=== PATIENT | female | born 1955 | race Caucasian/White ===

== ENCOUNTER → 2019-06-29 14:22 | Outpatient (CLI) | payer MEDICARE, SELFPAY ==
[2018-07-21 10:01] VITALS: BMI 32.5
--- NOTE | 2019-06-29 14:24 | BI_ITS ---
MAMMOGRAPHY - UNILATERAL SCREENING: LEFT BREAST REASON FOR EXAM: Female, 64 years old. Routine annual screening examination (unilateral). PERTINENT HISTORY: Personal history of breast cancer. Prior right mastectomy and left lumpectomy. Mother with breast cancer. TECHNIQUE: Digital unilateral breast charlotte (3D mammographic acquisition) in the CC and MLO projections. 2-D mediolateral oblique (MLO) and craniocaudad (CC) views of both breasts were obtained. CAD: Full Field Digital Mammography with Computer Added Detection was performed. COMPARISON: Comparison is made with prior study dated May 05, 2017. FINDINGS: Breast Composition: There are scattered areas of fibroglandular density. There are no dominant masses or suspicious calcifications. Stable focal architectural distortion with macrocalcification in the deep slightly inferior central portion of the left breast. Surgical clips are seen in the left axillary region. No other significant abnormalities are identified. There has been no significant change since the prior study. BI/SCREEN MAMM (CAD) W/CHARLOTTE UNI L IMPRESSION: Stable unilateral screening mammogram. Yearly follow-up mammogram recommended. (A) ASSESSMENT CATEGORY: BIRADS Category 2: Benign. A letter regarding these results will be sent to the patient by the facility within 30 days. Approximately 10% of breast cancers are not detected by mammography. A normal mammogram should not delay biopsy of a clinically suspicious abnormality. [id number] Electronically Signed: Skyler Bauer, at 15:25 EDT , Service support ,
== END ==
PROVIDERS: PCP Family Medicine; Referring Provider Nurse Practitioner Women's Health; Visit Provider Nurse Practitioner Women's Health
DX: Z12.31 Encounter for screening mammogram for malignant neoplasm of breast (principal); Z90.11 Acquired absence of right breast and nipple; Z85.3 Personal history of malignant neoplasm of breast
CPT/HCPCS: 77063; 77067

== ENCOUNTER → 2020-12-24 12:43 | Outpatient (CLI) | payer MEDICARE, SELFPAY ==
--- NOTE | 2020-12-24 12:47 | BI_ITS ---
MAMMOGRAPHY - UNILATERAL SCREENING: LEFT BREAST REASON FOR EXAM: Female, 65 years old. Routine annual screening examination (unilateral). PERTINENT HISTORY: Personal history of breast cancer. Prior right mastectomy and left lumpectomy. Mother with breast cancer. TECHNIQUE: Digital unilateral breast charlotte (3D mammographic acquisition) in the CC and MLO projections. 2-D mediolateral oblique (MLO) and craniocaudad (CC) views of both breasts were obtained. CAD: Full Field Digital Mammography with Computer Added Detection was performed. COMPARISON: Comparison is made with prior study 06/29/2019 and 05/05/2017. FINDINGS: Breast Composition: There are scattered areas of fibroglandular density. There are no dominant masses or suspicious calcifications. Stable focal architectural distortion with calcification in the deep slightly inferior central portion of the left breast. Surgical clips are also seen in the left axillary region. No other significant abnormalities are identified. There has been no significant change since the prior study. BI/SCREEN MAMM (CAD) W/CHARLOTTE UNI L IMPRESSION: Stable unilateral screening mammogram. Yearly follow-up mammogram recommended. (A) ASSESSMENT CATEGORY: BIRADS Category 2: Benign. A letter regarding these results will be sent to the patient by the facility within 30 days. Approximately 10% of breast cancers are not detected by mammography. A normal mammogram should not delay biopsy of a clinically suspicious abnormality. [id number] Electronically Signed: Skyler Bauer MD at 13:45 EDT , Service support ,
== END ==
PROVIDERS: PCP Family Medicine; Referring Provider Nurse Practitioner Women's Health; Visit Provider Nurse Practitioner Women's Health
DX: Z12.31 Encounter for screening mammogram for malignant neoplasm of breast (principal)
CPT/HCPCS: 77063; 77067

== ENCOUNTER → 2022-02-11 | Outpatient (CLI) | payer MEDICARE, SELFPAY ==
--- NOTE | 2022-02-11 12:07 | BI_ITS ---
MAMMOGRAPHY - UNILATERAL SCREENING: LEFT BREAST REASON FOR EXAM: Female, 66 years old. Routine annual screening examination (unilateral). PERTINENT HISTORY: Personal history of breast cancer. Prior right mastectomy. Prior left lumpectomy. TECHNIQUE: Digital unilateral breast charlotte (3D mammographic acquisition) in the CC and MLO projections. 2-D mediolateral oblique (MLO) and craniocaudad (CC) views of both breasts were obtained. CAD: Full Field Digital Mammography with Computer Added Detection was performed. COMPARISON: Comparison is made with prior study dated 12/24/2020 and 06/29/2019 FINDINGS: Breast Composition: There are scattered areas of fibroglandular density. There are no dominant masses or suspicious calcifications. The patient is status post lumpectomy involving the deep inferior central aspect of the left breast with resultant architectural distortion and postoperative calcification. Surgical clips are also seen in the left axillary region. No other significant abnormalities are identified. There has been no significant change since the prior study. BI/SCREEN MAMM (CAD) W/CHARLOTTE UNI L IMPRESSION: Stable unilateral screening mammogram. Yearly follow-up mammogram recommended. (A) ASSESSMENT CATEGORY: BIRADS Category 2: Benign. A letter regarding these results will be sent to the patient by the facility within 30 days. Approximately 10% of breast cancers are not detected by mammography. A normal mammogram should not delay biopsy of a clinically suspicious abnormality. [id number] Electronically Signed: Skyler Bauer MD at 12:58 EDT ,
== END | disposition home or self-care (01) ==
LOC: OPBI 12:06
PROVIDERS: PCP Family Medicine; Referring Provider Nurse Practitioner Women's Health; Visit Provider Nurse Practitioner Women's Health
DX: Z12.31 Encounter for screening mammogram for malignant neoplasm of breast (principal); Z90.11 Acquired absence of right breast and nipple
CPT/HCPCS: 77063; 77067

== ENCOUNTER → 2023-02-16 | Outpatient (CLI) | payer MEDICARE, SELFPAY ==
--- NOTE | 2023-02-16 08:04 | BI_ITS ---
MAMMOGRAPHY - UNILATERAL SCREENING: LEFT BREAST REASON FOR EXAM: Female, 67 years old. Routine annual screening examination (unilateral). PERTINENT HISTORY: Personal history of breast cancer. Prior right mastectomy. Prior left lumpectomy with chemotherapy and radiation therapy. Mother with breast cancer. TECHNIQUE: Digital unilateral breast charlotte (3D mammographic acquisition) in the CC and MLO projections. 2-D mediolateral oblique (MLO) and craniocaudad (CC) views of both breasts were obtained. CAD: Full Field Digital Mammography with Computer Added Detection was performed. COMPARISON: Comparison is made with prior study dated February 11, 2022 and December 24, 2020. FINDINGS: Breast Composition: There are scattered areas of fibroglandular density. There are no dominant masses or suspicious calcifications. Once again, the patient is status post lumpectomy in the deep inferior central portion of the left breast with resultant postoperative scarring and dystrophic calcification at the operative site. Stable appearance of the left axillary surgical clips. No other significant abnormalities are identified. There has been no significant change since the prior study. BI/SCREEN MAMM (CAD) W/CHARLOTTE UNI L IMPRESSION: Stable unilateral screening mammogram. Yearly follow-up mammogram recommended. (A) ASSESSMENT CATEGORY: BIRADS Category 2: Benign. A letter regarding these results will be sent to the patient by the facility within 30 days. Approximately 10% of breast cancers are not detected by mammography. A normal mammogram should not delay biopsy of a clinically suspicious abnormality. [id number] Electronically Signed: Skyler Bauer MD at 9:01 EDT ,
== END | disposition home or self-care (01) ==
LOC: OPBI 08:03
PROVIDERS: PCP Family Medicine; Referring Provider Nurse Practitioner Women's Health; Visit Provider Nurse Practitioner Women's Health
DX: Z12.31 Encounter for screening mammogram for malignant neoplasm of breast (principal); Z85.3 Personal history of malignant neoplasm of breast; Z80.3 Family history of malignant neoplasm of breast
CPT/HCPCS: 77063; 77067

== ENCOUNTER → 2023-03-24 | Outpatient (CLI) | payer MEDICARE, SELFPAY ==
--- NOTE | 2023-03-24 12:54 | US_ITS ---
STUDY: SUPERFICIAL ULTRASOUND - PRIOR MASTECTOMY. CHEST WALL MASS. REASON FOR EXAM: Female, 68 years old. MASS/RT BREAST TECHNIQUE: A superficial ultrasound was performed with real-time and static helms-scale imaging. COMPARISON: None. FINDINGS: The palpable abnormality corresponds to a 2.5 cm x 1.5 cm x 1.2 cm irregular hypoechoic mass. Peripheral vascularity is seen. Biopsy recommended. US/Chest IMPRESSION: The palpable abnormality corresponds to a 2.2 - by 1.5 cm x 1.2 cm irregular hypoechoic mass. Peripheral vascularity is seen. Biopsy recommended. Electronically Signed: Skyler Bauer MD at 15:10 EST ,
== END | disposition home or self-care (01) ==
LOC: OPUS 12:45 → US 12:48
PROVIDERS: Referring Provider Nurse Practitioner Women's Health; Visit Provider Nurse Practitioner Women's Health
DX: R22.2 Localized swelling, mass and lump, trunk (principal); Z90.10 Acquired absence of unspecified breast and nipple
CPT/HCPCS: 76604

== ENCOUNTER → 2023-04-16 | Outpatient (CLI) | payer MEDICARE, SELFPAY ==
--- NOTE | 2023-04-16 | IMM_PTH ---
PATHOLOGY RESULTS PATIENT: RUDDY HILLIARD LOC: [facility] U#:[id number] AGE/SX: 68/F ROOM: RE04/16/[address]: Dr. Jose Hernandez MD : 1955 BED: DIS: 04/16/2023 SPEC #: [id number] RECD: 04/21/23 14:43 STATUS: SUKH REQ #: [id number] SHERIE: 04/16/23 00:[address]: Jose Hernandez DEPT: IMMUNOHISTOCHEMISTRY RECD BY: Carmen Araiza ENTERED: 04/21/23 14:45 SP TYPE: IMMUNO OTHR DR: No Primary Care Phys Tissues: Chest wall, NOS Procedures: CALPONIN-1 (add) CK5-6 (add) CK8 (add) E-CAD (add) HER2 ROMA (add) KI-67 (add) MAMM (add) P53 (add) KY (add) Pankeratin (add) GATA3 (add) P40 (add) MOC-31 (add) ER (initial) PHYSICIAN & [place] [id number] SPECIMEN INFORMATION: Tissue Source: Right chest wall Clinical Info: Right chest wall mass Specimen Number: [id number] CPT code: 71174, 31380 x16 METHODOLOGY: Deparaffinized sections of prefer/formalin-fixed tissue or PAP/DQ stained slides are incubated with monoclonal/polyclonal antibodies/oligonucleotide probes. Localization is made via biotin free immunoperoxidase method. Appropriate controls are performed and reacted as expected. Results on target cell population are indicated in the following table: RESULTS: ANTIBODY / CLONE RESULT ER (6F11) positive, >95% KY (1E2) negative, 0% Her-2neu (CB11) negative, 0 P53 (DO-7) negative, null pattern Ki-67 (30-9) positive, 5% CK8 (04grwvG47) positive CK5-6 (D5 & 1684) negative Calponin-1 (QF256G) negative P40 (BC28) negative E-Cad (ECH-6) negative MOC-31 (4561) positive, dim Mammaglobin (31A5) positive GATA3 (L50-823) positive AE1-3 (AE1/AE3/PCK26) positive These tests were developed and their performance characteristics determined by [facility]. They may not have been cleared or approved by the U.S. Food and Drug Administration. The FDA has determined that such clearance or approval is not necessary. The above immunohistochemical/dualISH markers are ordered and reviewed by the Pathologist. INTERPRETATION: Right chest wall, biopsy: Infiltrating lobular carcinoma of breast origin. AM:shelli 04/22/2023
--- NOTE | 2023-04-16 | MASS_PTH ---
PATHOLOGY RESULTS PATIENT: RUDDY HILLIARD LOC: [facility] U#:[id number] AGE/SX: 68/F ROOM: RE04/16/[address]: Dr. Jose Hernandez MD : 1955 BED: DIS: 04/16/2023 SPEC #: [id number] RECD: 04/20/23 07:48 STATUS: SUKH MARTINEZ #: [id number] SHERIE: 04/16/23 00:[address]: Jose Hernandez DEPT: SURGICAL PATHOLOGY RECD BY: Barbi Mullins ENTERED: 04/20/23 07:50 SP TYPE: Mass OTHR DR: No Primary Care Phys Tissues: Chest wall, NOS Procedures: Surgery Specimen Level IV HEADER OPERATION: Right chest wall biopsy PRE-OP DIAGNOSIS: Right chest wall mass TISSUE SUBMITTED: Right chest wall tissue MICROSCOPIC DIAGNOSIS Right chest wall, biopsy: Infiltrating lobular carcinoma of breast origin. See comment. AM:shelli 04/21/2023 COMMENT Immunohistochemistry ([id number]) supports the above diagnosis. Case has been reviewed in consultation with Dr. Tay who concurs with the above diagnosis. IDC:SJ MICROSCOPIC DESCRIPTION Slides are reviewed. GROSS DESCRIPTION Received in fixative is one container labeled with the patient's name and designated right chest wall tissue. The specimen consists of two elongated pieces of garber soft tissue measuring in aggregate 0.8 x 0.2 x 0.1 cm. The specimen is totally submitted in one cassette. / SJ:shelli 04/20/2023 TC:0 CPT: 49362
--- OUTSIDE RECORDS SUMMARY | 2023-04-16 20:36 | XMS RPT_ITS | CCD ---
Author Name Unknown Address [address] [place] [address] Organization [facility] Results Test Name Value Interpretation Reference Range Facil ity Summary Purpose Family History No Family History Records Found Advance Directives No Advanced Directives Records Found Additional Source Comments INFORMATION SOURCE (unrecogn ized section and content) FOR RECORDS PERTAINING TO PATIENTS WHO ARE OR HAVE BEEN ENROLLED IN A CHEMICAL DEPENDENCY/SUBSTANCEABUSE PROGRAM, SOME INFORMATION MAY BE OMITTED. This clinical summary was aggregated from multiple sources. Caution should be exercised in using it in the provision of clinical care. This summary normalizes information from multiple sources, and as a consequence, information in this document may materially change the coding, format and clinical context of patient data. In addition, data may be omitted in some cases. CLINICAL DECISIONS SHOULD BE BASED ON THE PRIMARY CLINICAL RECORDS. [employer] provides no warranty or guarantee of the accuracy or completeness of information in this document.
== END | disposition home or self-care (01) ==
LOC: LABSPEC 16:25
PROVIDERS: Referring Provider Surgery; Visit Provider Surgery
DX: R22.2 Localized swelling, mass and lump, trunk (principal)
CPT/HCPCS: 81002; 88305; 88341; 88342

== ENCOUNTER 2023-05-24 09:00 | Day surgery (SDC) | payer MEDICARE, SELFPAY ==
[2023-05-24 09:04] VITALS: BP 131/87; PULSE 88; RESP 16; TEMP 36.6; O2SAT 98; BMI 32.8
[2023-05-24] MEDS: Lactated Ringers 1,000 ML 15 ML IV (09:09)
--- NOTE | 2023-05-24 10:00 | IMM_PTH ---
PATHOLOGY RESULTS PATIENT: RUDDY HILLIARD LOC: [facility] U#:[id number] AGE/SX: 68/F ROOM: RE05/24/[address]: Dr. Jose Hernandez MD : 1955 BED: DIS: 05/24/2023 SPEC #: [id number] RECD: 05/24/23 13:50 STATUS: SUKH MARTINEZ #: [id number] SHERIE: 05/24/23 10:[address]: Jose Hernandez DEPT: IMMUNOHISTOCHEMISTRY RECD BY: Carmen Araiza ENTERED: 05/24/23 13:50 SP TYPE: IMMUNO OTHR DR: Dr. Kate Good MD Tissues: Stomach, NOS Procedures: H Pylori (initial) PHYSICIAN & INSTITUTION [place] [id number] SPECIMEN INFORMATION: Tissue Source: B - Antrum Clinical Info: Mass of chest wall, right Specimen Number: [id number] B CPT code: 15609 METHODOLOGY: Deparaffinized sections of prefer/formalin-fixed tissue or PAP/DQ stained slides are incubated with monoclonal/polyclonal antibodies/oligonucleotide probes. Localization is made via biotin free immunoperoxidase method. Appropriate controls are performed and reacted as expected. Results on target cell population are indicated in the following table: RESULTS: ANTIBODY / CLONE RESULT Block B H Pylori (polyclonal) negative These tests were developed and their performance characteristics determined by [facility]. They may not have been cleared or approved by the U.S. Food and Drug Administration. The FDA has determined that such clearance or approval is not necessary. The above immunohistochemical/dualISH markers are ordered and reviewed by the Pathologist. INTERPRETATION: B. Antrum, biopsy: Negative for Helicobacter pylori organisms. SJ:shelli 05/25/2023
--- NOTE | 2023-05-24 10:00 | EGD_PTH ---
PATHOLOGY RESULTS PATIENT: RUDDY HILLIARD LOC: [facility] U#:[id number] AGE/SX: 68/F ROOM: RE05/24/[address]: Dr. Jose Hernandez MD : 1955 BED: DIS: 05/24/2023 SPEC #: [id number] RECD: 05/24/23 11:47 STATUS: SUKH MARTINEZ #: [id number] SHERIE: 05/24/23 10:[address]: Jose Hernandez DEPT: SURGICAL PATHOLOGY RECD BY: Barbi Mullins ENTERED: 05/24/23 11:48 SP TYPE: EGD BIOPSY OT DR: Dr. Kate Good MD Tissues: Duodenum, NOS Gastric mucous membrane Gastric mucous membrane Esophageal mucous membrane Esophageal mucous membrane Procedures: Special Stain Group II Surgery Specimen Level IV Alcian Blue/PAS (control) HEADER OPERATION: EGD with biopsies PRE-OP DIAGNOSIS: Mass of right chest wall TISSUE SUBMITTED: A - Duodenum biopsy, B - Antrum biopsy for H. pylori and path, C - Greater curvature polyp biopsy, D - Distal esophagus biopsy, E - Mid esophagus biopsy MICROSCOPIC DIAGNOSIS A. Duodenum, biopsy: A fragment of duodenal mucosa, no pathologic diagnosis. B. Antrum, biopsy: Mild gastritis. See microscopic description and comment. C. Greater curvature polyp, biopsy: Fundic gland polyp. D. Distal esophagus, biopsy: Fragments of gastroesophageal mucosa with chronic inflammation, superficial acute inflammation and changes consistent with gastroesophageal reflux disease. Intestinal metaplasia (goblet cell metaplasia) not identified. See comment. E. Mid esophagus, biopsy: Fragments of gastroesophageal mucosa with chronic inflammation. Intestinal metaplasia (goblet cell metaplasia) not identified. See comment. SJ:shelli 05/25/2023 COMMENT B. The results of immunohistochemistry for Helicobacter pylori will be reported separately ([id number]). D & E. Alcian blue/PAS stain with matched control is used in the evaluation of the specimen. MICROSCOPIC DESCRIPTION Slides are reviewed. B. The specimen shows fragments of gastric mucosa with chronic inflammatory cell infiltrates in the lamina propria consisting of lymphocytes and plasma cells, consistent with mild chronic gastritis. Focal mucosal congestion is also noted. GROSS DESCRIPTION A - Received in fixative is one container labeled with the patient's name and designated duodenal biopsy. The specimen consists of one irregular fragment of light garber soft tissue that measures 0.4 x 0.4 x 0.1 cm. The specimen is totally submitted in one cassette. B - Received in fixative is one container labeled with the patient's name and designated antrum biopsy. The specimen consists of one irregular fragment of light garber soft tissue that measures 0.4 x 0.3 x 0.1 cm. The specimen is totally submitted in one cassette. C - Received in fixative is one container labeled with the patient's name and designated greater curvature polyp biopsy. The specimen consists of one irregular fragment of light garber soft tissue that measures 0.7 x 0.2 x 0.1 cm. The specimen is totally submitted in one cassette. D - Received in fixative is one container labeled with the patient's name and designated distal esophagus biopsy. The specimen consists of multiple irregular fragments of light garber soft tissue that in aggregate measure 1.0 x 1.0 x 0.1 cm. The specimen is totally submitted in one cassette. E - Received in fixative is one container labeled with the patient's name and designated mid esophagus biopsy. The specimen consists of multiple irregular fragments of light garber soft tissue that in aggregate measure 0.5 x 0.3 x 0.1 cm. The specimen is totally submitted in one cassette. / GELA:shelli 05/24/2023 TC:3 CPT: 38323 x5
--- NOTE | 2023-05-24 10:00 | PCM.HP.BLA ---
History and Physical Date of Admission: 05/24/23 Intake Visit Reasons: right chest wall mass/hx of breast ca Chief Complaint: Right chest area lump Laboratory Mechanical Technician Required: No Accompanied by: Self Is patient in pain?: No Allergies red dye Allergy (Intermediate, Verified 04/16/23 15:03) allergic reaction Medications NK 12/17/20 [History Confirmed 04/16/23] PFSH Medical History History of bilateral breast cancer Surgical History H/O lumpectomy H/O mastectomy History of delivery Family History Mother No problems noted. Brother CancerSon CancerFather Cancer Social History Smoking Status: Never smoker second hand exposure: No alcohol intake: never substance use type: does not use what type of physical activity do you participate in: other details: cross fit frequency: 3-4 times per week duration: 45-60 minutes/day seatbelt use: always additional social history: Spouse Reddy HPI HPI HPI: 68-year-old female. She is referred by NILS Baugh for surgical consultation regarding a right chest wall mass. The patient's had a previous history of a right mastectomy for breast cancer as well as breast conservation surgery on the left for breast cancer. Her left breast lumpectomy was in 1997 and her right mastectomy in 2004. The patient had a right chest wall ultrasound on March 24, 2023 suggesting a 2.5 x 1.5 x 1.2 cm irregular hypoechoic mass right chest wall. Biopsy recommended. The patient was offered a much earlier office appointment but declined due to personal vacation reasons. My operative note from September 20, 2004 suggest invasive mammary carcinoma upper outer quadrant right breast. At that time a left internal jugular port was placed and a right axillary blue dye sentinel lymph node biopsy was performed with negative nodes and a total mastectomy. Final pathology demonstrated 5 lymph nodes negative for metastatic disease. The upper outer quadrant right breast cancer was 5.5 cm in diameter invasive mammary carcinoma. Grade 1 of 3. Surgical margins was free with the closest margin being 2 cm being the deep margin. The original frozen section states 5 lymph nodes were submitted the final pathology states for lymph nodes were submitted but all of the lymph nodes were negative. Reference is made back to August 24, 1997 where a left breast lumpectomy showed invasive lobular carcinoma The patient has noted this right chest wall mass on the edge of the pectoralis major now for about a month. Nontender. She has no other feelings of unwellness. Her previous oncologist was Dr. Loida Brush. He is now retired. She did have breast conservation surgery on the left and radiation to the left but she did not require radiation on the right. As noted the right breast cancer dictates all the way back to 2004. To complicate matters she has extensive travel plans. She has plans to travel to [facility] May 09 to in [facility] starting June 08 March 24, 2023 STUDY: SUPERFICIAL ULTRASOUND - PRIOR MASTECTOMY. CHEST WALL MASS. REASON FOR EXAM: Female, 68 years old. MASS/RT BREAST TECHNIQUE: A superficial ultrasound was performed with real-time and static helms-scale imaging. COMPARISON: None. FINDINGS: The palpable abnormality corresponds to a 2.5 cm x 1.5 cm x 1.2 cm irregular hypoechoic mass. Peripheral vascularity is seen. Biopsy recommended. US/Chest IMPRESSION: The palpable abnormality corresponds to a 2.2 - by 1.5 cm x 1.2 cm irregular hypoechoic mass. Peripheral vascularity is seen. Biopsy recommended. Electronically Signed: Skyler Bauer MD at 15:10 EST , ROS General General: No weight change, fatigue, colon cancer or breast cancer Additional Details: Hx Breast Cancer HEENT HEENT: No difficulty swallowing, eye injury, eye surgery or swollen glands Endo Endocrine: No thyroid disease, diabetes mellitus or thyroid cancer Skin Skin: No rash or changing moles Musc Musculoskeletal: No back problems, arthritis, rheumatoid arthritis or gout Cardio Cardiovascular: No murmur, pacemaker, heart disease, atrial fibrillation, high blood pressure, heart attack or heart stent Psych Psychiatric: No depression or anxiety Resp Respiratory: No shortness of breath, No sleep apnea, No cough, No COPD, No asthma and No emphysema Gastro Gastrointestinal: No abdominal pain, No nausea or vomiting, No diarrhea, No constipation, No blood in stool, No acid reflux, No hemorrhoids, No ulcers, No gallbladder problem and No black,tarry stools [place] Hematologic: No blood thinners, No blood disorders, No bleeding, No anemia and No blood clots Neuro Neurologic: No numbness and No tingling Exam Const General: cooperative, healthy appearing, comfortable and no acute distress Nutritional Appearance: average body habitus [facility] Head: normal to inspection Neck Neck: normal visual inspection Chest Other: Very nicely healed breast mastectomy. At the superior margin the transverse incision close to the edge of the pectoralis major there is an easily palpable approximately 3 cm diameter mass. Initially I thought it was somewhat mobile from the deep area but then on repeat examination suspect that it is likely fixed deep. Do not detect any other focal masses. Resp Effort & Inspection: normal respiratory effort Auscultation: clear to auscultation bilaterally Cardio Rate: regular rate Rhythm: regular rhythm GI Inspection: normal to inspection Palpation: soft and no hepatosplenomegaly Skin General: no rashes or lesions noted Neuro General: patient alert, patient awake and patient oriented x3 Extrem General: no calf tenderness Psych Appearance: grossly normal Office Procedures Biopsy Provider Documentation Ultrasound-guided needle core biopsy right chest wall mass Timeout informed consent was obtained. The patient was taken the procedure room right shoulder roll was placed. The right mastectomy site was inspected. Superior to the transverse incision and close to the edge of the pectoralis major the palpable mass could be identified. Breast was prepped with Betadine ultrasound performed 1% lidocaine mixed 50-50 with 0.5% Marcaine was used as a local anesthetic. A total of 8 cc was used. A small stab incision created 14-gauge Monopty needle was advanced to prefire depth prefire films were obtained as were post fire films. 2 core samples were obtained. Obtaining cores somewhat minimal with the tissue. I did leave a marking clip line. Clinically this irregular taller than wider lesion appears to be very suspicious for malignancy. Pressure was held for hemostasis. Steri-Strip Telfa OpSite dressing applied. The specimen was immediately transferred to formalin for analysis Jose Hernandez M.D., F.A.C.S. Biopsy Breast Biopsy: [id number] US Guidance Procedure Time Out Time Out Informed consent given: Yes Consent signed: Yes Time out checklist: patient, procedure, site marked/identified, positioning of patient, supplies available, allergies confirmed and team agrees on procedure Time out staff in room: Yes Time out verified: Yes Time out date: 04/16/23 Time out time: 15:15 Assessment and Plan Assessment and Plan (1) Mass of chest wall, right: Status: Acute Comment: right diagnostic mammogram/declined per radiology. Proceed with ultrasound today and patient requests Dr Hernandez and scheduled 04/15/23 Plan: I recommended to the patient that we do an ultrasound-guided needle core biopsy of this area. From the length of time I am suspicious this might be a Denovo right breast cancer and of course it could be a very delayed recurrence. This is the only current evidence we have of recurrent disease. I think it would be pertinent for us to obtain a PET/CT looking for other evidence of potential metastasis. If this is the only focal area then in the operating room I believe I could do a wide local resection of this area and then she might be benefited then from radiotherapy to the right chest which she did not have prior. She has had an opportunity to ask and have questions answered. We pursued today with ultrasound guided core biopsy and she tolerated that well. We will try to obtain the PET/CT. We will tentatively try to schedule her Copy: Dr. Jaime Perry and Cindi Olvera NP-Parker Hernandez M.D., F.A.C.S. Orders: Orders PET/CT Tumor WB Initial Today R22.2 - Localized swelling, mass and lump, trunk, Z85.3 - Personal history of malignant neoplasm of breast Details: Phone call discussion with Dr. Alessandro Peace He notes patient did previously have some lobular carcinoma component of the right mastectomy site and so we will pursue a local wide excision of the biopsy-proven area of invasive lobular carcinoma right chest wall. Because of the PET scan abnormality in the lesser curvature of the stomach he is requesting that we pursue a esophagogastroduodenoscopy with possible biopsy looking for possible gastric source to the adenopathy. We certainly can schedule and proceed with that. Regarding the single solitary lymph node lump on the lesser curve that PET scan suggests is present I do not believe that I have a means of definitively identifying and diagnosing this tissue for her. Will proceed with the EGD and the wide resection of the right chest wall area. That may shed light on the PET scan findings but possibly will still leave that lesser curvature lymph node in question. Jose Hernandez M.D., F.A.C.S. I have examined the patient and the H&P has been reviewed. There are no clinical changes since date of exam. Jose Hernandez M.D., F.A.C.S.
[2023-05-24 10:19] VITALS: BP 104/65; BP 131/87; PULSE 64; RESP 14; TEMP 36.1; O2SAT 95
--- NOTE | 2023-05-24 10:20 | OP.EGD_ITS ---
Patient Name: Pearl Rose Procedure Date: 05/24/2023 9:49 AM Date of : 1955 Age: 68 Procedure: Upper GI endoscopy Indications: Abnormal PET scan of the GI tract Providers: Jose Hernandez MD Medicines: See the Anesthesia note for documentation of the administered medications Complications: No immediate complications. Procedure: Pre-Anesthesia Assessment: - Prior to the procedure, a History and Physical was performed, and patient medications and allergies were reviewed. The patient's tolerance of previous anesthesia was also reviewed. The risks and benefits of the procedure and the sedation options and risks were discussed with the patient. All questions were answered, and informed consent was obtained. Prior Anticoagulants: The patient has taken no anticoagulant or antiplatelet agents. ASA Grade Assessment: II - A patient with mild systemic disease. After reviewing the risks and benefits, the patient was deemed in satisfactory condition to undergo the procedure. After obtaining informed consent, the endoscope was passed under direct vision. Throughout the procedure, the patient's blood pressure, pulse, and oxygen saturations were monitored continuously. The Endoscope was introduced through the mouth, and advanced to the second part of duodenum. The upper GI endoscopy was accomplished without difficulty. The patient tolerated the procedure well. Scope In: 10:05:30 AM Scope Out: 10:14:10 AM Total Procedure Duration Time 0 hours 8 minutes 40 seconds Findings: LA Grade A (one or more mucosal breaks less than 5 mm, not extending between tops of 2 mucosal folds) esophagitis with no bleeding was found 36 cm from the incisors. Biopsies were taken with a cold forceps for histology. The middle third of the esophagus was normal. Biopsies were taken with a cold forceps for histology. A 5 cm hiatal hernia was present. Diffuse mildly erythematous mucosa without bleeding was found in the gastric antrum. Biopsies were taken with a cold forceps for histology. Multiple pedunculated and sessile polyps with no bleeding and no stigmata of recent bleeding were found in the gastric body. The polyp was removed with a cold biopsy forceps. Resection and retrieval were complete. The examined duodenum was normal. Biopsies were taken with a cold forceps for histology. Impression: - LA Grade A reflux esophagitis with no bleeding. Biopsied. - Normal middle third of esophagus. Biopsied. - 5 cm hiatal hernia. - Erythematous mucosa in the antrum. Biopsied. - Multiple gastric polyps. Resected and retrieved. - Normal examined duodenum. Biopsied. Recommendation: - Discharge patient to home. - Resume previous diet. - Continue present medications. - Use Prilosec (omeprazole) 40 mg PO daily. - Telephone my office for pathology results in 1 week. Procedure Code(s): --- Professional --- 47440, Esophagogastroduodenoscopy, flexible, transoral; with biopsy, single or multiple Diagnosis Code(s): --- Professional --- K21.00, Gastro-esophageal reflux disease with esophagitis, without bleeding K44.9, Diaphragmatic hernia without obstruction or gangrene K31.89, Other diseases of stomach and duodenum K31.7, Polyp of stomach and duodenum R93.3, Abnormal findings on diagnostic imaging of other parts of digestive tract CPT copyright 2021 [employer]. All rights reserved. The codes documented in this report are preliminary and upon dry heat cabinet attendant review may be revised to meet current compliance requirements. Jose Hernandez MD 05/24/2023 10:20:05 AM This report has been signed electronically. Number of Addenda: 0 Note Initiated On: 05/24/2023 9:49 AM
--- NOTE | 2023-05-24 10:20 | OP.CCLET_ITS ---
05/24/2023 Alessandro Peace MD [address] [facility] [address] [place] [address] Re : Upper GI endoscopy procedure for Pearl Farrraul Dear Dr. Peace This procedure was performed on Wednesday, May 24, 2023. My impressions and recommendations are as follows: Impressions : - LA Grade A reflux esophagitis with no bleeding. Biopsied. - Normal middle third of esophagus. Biopsied. - 5 cm hiatal hernia. - Erythematous mucosa in the antrum. Biopsied. - Multiple gastric polyps. Resected and retrieved. - Normal examined duodenum. Biopsied. Recommendations : - Discharge patient to home. - Resume previous diet. - Continue present medications. - Use Prilosec (omeprazole) 40 mg PO daily. - Telephone my office for pathology results in 1 week. My findings are described in the full procedure note, which is enclosed. If I can be of further assistance, please feel free to contact me at Doctor phone number(s): Work: . Sincerely, Jose Hernandez MD 05/24/2023 10:20:05 AM This report has been signed electronically.
--- OUTSIDE RECORDS SUMMARY | 2023-05-24 10:23 | XMS RPT_ITS | CCD ---
Author Name Unknown Address [address] [place] [address] Organization [facility] Results Test Name Value Interpretation [...] BE BASED ON THE PRIMARY CLINICAL RECORDS. [employer] provides no warranty or guarantee of the accuracy or completeness of information in this document.
[2023-05-24 10:25] VITALS: BP 131/87; BP 91/51; PULSE 57; RESP 16; O2SAT 92
--- OUTSIDE RECORDS SUMMARY | 2023-05-24 10:26 | XMS RPT_ITS | CCD ---
Author Name Unknown Address [address] [place] [address] Organization [facility] Results Test Name Value Interpretation [...] BE BASED ON THE PRIMARY CLINICAL RECORDS. [employer] provides no warranty or guarantee of the accuracy or completeness of information in this document.
[2023-05-24 10:29] VITALS: BP 131/87; BP 98/58; PULSE 57; RESP 16; O2SAT 95
[2023-05-24 10:34] VITALS: BP 106/61; BP 131/87; PULSE 56; RESP 16; TEMP 36.5; O2SAT 95
[2023-05-24 10:48] VITALS: BP 131/87
== END 2023-05-24 11:09 | disposition home or self-care (01) ==
LOC: EN 10:00 → AC 10:00
PROVIDERS: PCP Family Medicine; Referring Provider Family Medicine; Visit Provider Surgery
PROC: 0DJ08ZZ Inspection of Upper Intestinal Tract, Via Natural or Artificial Opening Endoscopic (ICD-10-PCS; CPT 43235; principal; 2023-05-24 09:55)
DX: R22.2 Localized swelling, mass and lump, trunk (principal); K44.9 Diaphragmatic hernia without obstruction or gangrene; K21.00 Gastro-esophageal reflux disease with esophagitis, without bleeding; K31.7 Polyp of stomach and duodenum; Z90.11 Acquired absence of right breast and nipple; Z85.3 Personal history of malignant neoplasm of breast; K31.89 Other diseases of stomach and duodenum
CPT/HCPCS: 43239; 88305; 88313; 88342; J7120; J2405

== ENCOUNTER 2023-05-26 09:10 | Day surgery (SDC) | payer MEDICARE, SELFPAY ==
--- NOTE | 2023-05-11 10:00 | RAD_ITS ---
STUDY: X-RAY CHEST REASON FOR EXAM: Female, 68 years old. PRE-OP TECHNIQUE: Frontal and lateral views of the chest. COMPARISON: None. FINDINGS: The lungs are clear and expanded. There is no demonstrated pleural abnormality. Normal size heart. Normal mediastinum and julianne. Normal visualized pulmonary arteries. Normal visualized aortic arch and descending thoracic aorta. Normal visualized thoracic spine. Normal visualized ribs, clavicles, and shoulders. There is no demonstrated abnormality of the visualized soft tissue structures of the upper abdomen. There are clips in the bilateral axilla consistent with lymphadenectomy for breast cancer. RAD/Chest PA and Lateral IMPRESSION: No definite acute or significant abnormality seen. Electronically Signed: Kei Yousif MD at 17:02 EST ,
[2023-05-26] VITALS (9 sets, daily range): BP systolic 104–148; BP diastolic 69–81; PULSE 67–83; RESP 16; TEMP 36.1–36.6; O2SAT 94–99; BMI 31.3
--- NOTE | 2023-05-26 | LES_PTH ---
PATHOLOGY RESULTS PATIENT: RUDDY HILLIARD LOC: [facility] U#:[id number] AGE/SX: 68/F ROOM: RE05/26/[address]: Dr. Jose Hernandez MD : 1955 BED: DIS: 05/26/2023 SPEC #: [id number] RECD: 05/26/23 12:55 STATUS: SUKH MARTINEZ #: [id number] SHERIE: 05/26/23 00:[address]: Jose Hernandez DEPT: SURGICAL PATHOLOGY RECD BY: Alan Lemon ENTERED: 05/26/23 12:55 SP TYPE: Lesion OTHR DR: Dr. Kate Good MD Tissues: Skin of chest Procedures: Surgery Specimen Level IV HEADER OPERATION: Wide excision right chest wall mass PRE-OP DIAGNOSIS: Right chest wall mass breast cancer TISSUE SUBMITTED: Right chest wall breast cancer, tag medial aspect of transverse ellipse MICROSCOPIC DIAGNOSIS Right chest wall mass, wide excision: Recurrent invasive lobular carcinoma (3.0 cm in greatest dimension), completely excised. See comment. SJ:shelli 05/28/2023 COMMENT The tumor invades into the adjacent skeletal muscle tissue. The tumor is 0.1 cm away from the closest deep margin. The tumor shows cautery artifacts in the areas close to the deep margin. Please make reference to previous specimen ([id number]) right chest wall, biopsy with diagnosis of infiltrating lobular carcinoma of breast origin. Case has been reviewed in consultation with Dr. Harris who concurs with the above diagnosis. IDC:AM MICROSCOPIC DESCRIPTION Slides are reviewed. GROSS DESCRIPTION Received in fixative is one container labeled with the patient's name and designated right chest wall breast cancer. The specimen consists of a garber-white skin ellipse with underlying tissue measuring 8.5 x 3.0 cm and up to 2.5 cm in thickness. A suture is noted at one tip identified as lateral. The resection margins are inked as follows: medial tip - green, lateral tip - yellow, presumed superior margin - black, presumed inferior margin - blue, deep margin - red. Serial sections reveal a garber, indurated mass measuring 3.0 x 1.5 x 2.0 cm. This mass is very close to the deep margin of the specimen and superior margin of the specimen. Aquatics Director sections are submitted in nine cassettes as follows: 1 - medial and lateral tips and perpendicular inferior margin, 2-9 - entire tumor mass with closest superior and deep margins. / SJ:shelli 05/27/2023 TC:0 CPT: 75706 ADDENDUM ADDENDUM 07/15/2023 13:12 PD-L1 ([id number]) IMMUNOHISTOCHEMICAL ANALYSIS FROM [facility] MOD RESULTS: Tumor proportion score: <1% / Negative ONKOSIT ADVANCED SOLID TUMOR NGS REPORT FROM [facility] MOD RESULT SUMMARY: Cancelled INTERPRETATION SUMMARY: Review of the specimen revealed that there was insufficient tumor present to meet the requirements for molecular testing, and therefore, testing was cancelled. Too little tumor material results in inadequate amounts of nucleic acid to successfully perform the assay. If alternative sample is available, sample resubmission may be of interest, if clinically indicated. (Block 7) Please see complete report in e-chart or EMR ADDENDUM 08/03/2023 09:54 ONKOSIGHT NGS REPORT FROM [facility] MOD RESULT SUMMARY: Abnormal High level TMB is DETECTED. DETECTED GENOMIC ALTERATIONS: Tier I: Variants of strong clinical significance PIK3CA p. ([id number]) Tier II: Variants of potential clinical significance CDH1 p. ([id number]) ARID1A p. ([id number]) Tier III: Variants of unknown clinical significance VHL p. ([id number]) IMMUNOTHERAPY BIOMARKERS: Tumor mutation burden: High (14.1 Mutations /MB) Microsatellite instability: MSI Negative (2.65%) PERTINENT NEGATIVE RESULTS: The following genes are NEGATIVE for clinically relevant mutations. Mutational hotspots and surrounding exonic regions were interrogated for DNA level point mutations and indels (fusions not assayed). AKT1, APC, TOOTIE, BRAF, BRCA1, BRCA2, CDKN2A, CTNNB1, EGFR, EPCAM, ERBB2, ERBB4, FBXW7, FGFR1, FGFR2, FGFR3, GNA11, GNAQ, GNAS, HRAS, IDH1, IDH2, KDR, KIT, KRAS, MEN1, MET, MLH1, MSH2, MSH6, MOTCH1, MRAS, PDGFRA, PMS2, POLE, PTEN, PTPN11, RB1, RET, SMAD4, SMO, STK11, TERT, TP53, TSC1, TSC2. Please see complete report in e-chart or EMR
[2023-05-26] MEDS: Lactated Ringers 1,000 ML 15 ML IV (09:37)
--- NOTE | 2023-05-26 10:04 | PCM.HP.BLA ---
History and Physical Date of Admission: 05/26/23 Intake Visit Reasons: right chest wall mass/hx of breast ca Chief Complaint: Right chest area lump Airplane Inspector Required: No Accompanied by: Self Is patient in pain?: No Allergies red dye Allergy (Intermediate, Verified 04/16/23 15:03) allergic reaction Medications NK 12/17/20 [History Confirmed 04/16/23] PFSH Medical History History of bilateral breast cancer Surgical History H/O lumpectomy H/O mastectomy History of delivery Family History Mother No problems noted. Brother CancerSon CancerFather Cancer Social History Smoking Status: Never smoker second hand exposure: No alcohol intake: never substance use type: does not use what type of physical activity do you participate in: other details: cross fit frequency: 3-4 times per week duration: 45-60 minutes/day seatbelt use: always additional social history: Spouse Reddy HPI HPI HPI: 68-year-old female. She is referred by NILS Baugh for surgical consultation regarding a right chest wall mass. The patient's had a previous history of a right mastectomy for breast cancer as well as breast conservation surgery on the left for breast cancer. Her left breast lumpectomy was in 1997 and her right mastectomy in 2004. The patient had a right chest wall ultrasound on March 24, 2023 suggesting a 2.5 x 1.5 x 1.2 cm irregular hypoechoic mass right chest wall. Biopsy recommended. The patient was offered a much earlier office appointment but declined due to personal vacation reasons. My operative note from September 20, 2004 suggest invasive mammary carcinoma upper outer quadrant right breast. At that time a left internal jugular port was placed and a right axillary blue dye sentinel lymph node biopsy was performed with negative nodes and a total mastectomy. Final pathology demonstrated 5 lymph nodes negative for metastatic disease. The upper outer quadrant right breast cancer was 5.5 cm in diameter invasive mammary carcinoma. Grade 1 of 3. Surgical margins was free with the closest margin being 2 cm being the deep margin. The original frozen section states 5 lymph nodes were submitted the final pathology states for lymph nodes were submitted but all of the lymph nodes were negative. Reference is made back to August 24, 1997 where a left breast lumpectomy showed invasive lobular carcinoma The patient has noted this right chest wall mass on the edge of the pectoralis major now for about a month. Nontender. She has no other feelings of unwellness. Her previous oncologist was Dr. Loida Brush. He is now retired. She did have breast conservation surgery on the left and radiation to the left but she did not require radiation on the right. As noted the right breast cancer dictates all the way back to 2004. To complicate matters she has extensive travel plans. She has plans to travel to [facility] May 09 to in [facility] starting June 08 March 24, 2023 STUDY: SUPERFICIAL ULTRASOUND - PRIOR MASTECTOMY. CHEST WALL MASS. REASON FOR EXAM: Female, 68 years old. MASS/RT BREAST TECHNIQUE: A superficial ultrasound was performed with real-time and static helms-scale imaging. COMPARISON: None. FINDINGS: The palpable abnormality corresponds to a 2.5 cm x 1.5 cm x 1.2 cm irregular hypoechoic mass. Peripheral vascularity is seen. Biopsy recommended. US/Chest IMPRESSION: The palpable abnormality corresponds to a 2.2 - by 1.5 cm x 1.2 cm irregular hypoechoic mass. Peripheral vascularity is seen. Biopsy recommended. Electronically Signed: Skyler Bauer MD at 15:10 EST , ROS General General: No weight change, fatigue, colon cancer or breast cancer Additional Details: Hx Breast Cancer HEENT HEENT: No difficulty swallowing, eye injury, eye surgery or swollen glands Endo Endocrine: No thyroid disease, diabetes mellitus or thyroid cancer Skin Skin: No rash or changing moles Musc Musculoskeletal: No back problems, arthritis, rheumatoid arthritis or gout Cardio Cardiovascular: No murmur, pacemaker, heart disease, atrial fibrillation, high blood pressure, heart attack or heart stent Psych Psychiatric: No depression or anxiety Resp Respiratory: No shortness of breath, No sleep apnea, No cough, No COPD, No asthma and No emphysema Gastro Gastrointestinal: No abdominal pain, No nausea or vomiting, No diarrhea, No constipation, No blood in stool, No acid reflux, No hemorrhoids, No ulcers, No gallbladder problem and No black,tarry stools [place] Hematologic: No blood thinners, No blood disorders, No bleeding, No anemia and No blood clots Neuro Neurologic: No numbness and No tingling Exam Const General: cooperative, healthy appearing, comfortable and no acute distress Nutritional Appearance: average body habitus [facility] Head: normal to inspection Neck Neck: normal visual inspection Chest Other: Very nicely healed breast mastectomy. At the superior margin the transverse incision close to the edge of the pectoralis major there is an easily palpable approximately 3 cm diameter mass. Initially I thought it was somewhat mobile from the deep area but then on repeat examination suspect that it is likely fixed deep. Do not detect any other focal masses. Resp Effort & Inspection: normal respiratory effort Auscultation: clear to auscultation bilaterally Cardio Rate: regular rate Rhythm: regular rhythm GI Inspection: normal to inspection Palpation: soft and no hepatosplenomegaly Skin General: no rashes or lesions noted Neuro General: patient alert, patient awake and patient oriented x3 Extrem General: no calf tenderness Psych Appearance: grossly normal Office Procedures Biopsy Provider Documentation Ultrasound-guided needle core biopsy right chest wall mass Timeout informed consent was obtained. The patient was taken the procedure room right shoulder roll was placed. The right mastectomy site was inspected. Superior to the transverse incision and close to the edge of the pectoralis major the palpable mass could be identified. Breast was prepped with Betadine ultrasound performed 1% lidocaine mixed 50-50 with 0.5% Marcaine was used as a local anesthetic. A total of 8 cc was used. A small stab incision created 14-gauge Monopty needle was advanced to prefire depth prefire films were obtained as were post fire films. 2 core samples were obtained. Obtaining cores somewhat minimal with the tissue. I did leave a marking clip line. Clinically this irregular taller than wider lesion appears to be very suspicious for malignancy. Pressure was held for hemostasis. Steri-Strip Telfa OpSite dressing applied. The specimen was immediately transferred to formalin for analysis Jose Hernandez M.D., F.A.C.S. Biopsy Breast Biopsy: [id number] US Guidance Procedure Time Out Time Out Informed consent given: Yes Consent signed: Yes Time out checklist: patient, procedure, site marked/identified, positioning of patient, supplies available, allergies confirmed and team agrees on procedure Time out staff in room: Yes Time out verified: Yes Time out date: 04/16/23 Time out time: 15:15 Assessment and Plan Assessment and Plan (1) Mass of chest wall, right: Status: Acute Comment: right diagnostic mammogram/declined per radiology. Proceed with ultrasound today and patient requests Dr Hernandez and scheduled 04/15/23 Plan: I recommended to the patient that we do an ultrasound-guided needle core biopsy of this area. From the length of time I am suspicious this might be a Denovo right breast cancer and of course it could be a very delayed recurrence. This is the only current evidence we have of recurrent disease. I think it would be pertinent for us to obtain a PET/CT looking for other evidence of potential metastasis. If this is the only focal area then in the operating room I believe I could do a wide local resection of this area and then she might be benefited then from radiotherapy to the right chest which she did not have prior. She has had an opportunity to ask and have questions answered. We pursued today with ultrasound guided core biopsy and she tolerated that well. We will try to obtain the PET/CT. We will tentatively try to schedule her Copy: Dr. Jaime Perry and Cindi Olvera NP-Parker Hernandez M.D., F.A.C.S. Orders: Orders PET/CT Tumor WB Initial Today R22.2 - Localized swelling, mass and lump, trunk, Z85.3 - Personal history of malignant neoplasm of breast Details: Phone call discussion with Dr. Alessandro Peace He notes patient did previously have some lobular carcinoma component of the right mastectomy site and so we will pursue a local wide excision of the biopsy-proven area of invasive lobular carcinoma right chest wall. Because of the PET scan abnormality in the lesser curvature of the stomach he is requesting that we pursue a esophagogastroduodenoscopy with possible biopsy looking for possible gastric source to the adenopathy. We certainly can schedule and proceed with that. Regarding the single solitary lymph node lump on the lesser curve that PET scan suggests is present I do not believe that I have a means of definitively identifying and diagnosing this tissue for her. Will proceed with the EGD and the wide resection of the right chest wall area. That may shed light on the PET scan findings but possibly will still leave that lesser curvature lymph node in question. Jose Hernandez M.D., F.A.C.S. The esophagogastroduodenoscopy demonstrated gastritis and reflux esophagitis. No findings that would correlate with the lesser curvature lymph node. The esophagitis would clearly correlate with the degree of inflammation in the distal esophagus. Today we plan to proceed with a wide excision of the right chest wall known lobular carcinoma. Patient is aware of technique benefit risk complication alternatives. She has had an opportunity to ask and have questions answered. We will proceed as noted. Jose Hernandez M.D., F.A.C.S.
--- OUTSIDE RECORDS SUMMARY | 2023-05-26 10:21 | XMS RPT_ITS | CCD ---
Author Name Unknown Address [address] [place] [address] Organization [facility] Results Test Name Value Interpretation [...] BE BASED ON THE PRIMARY CLINICAL RECORDS. [employer] provides no warranty or guarantee of the accuracy or completeness of information in this document.
--- NOTE | 2023-05-26 10:40 | EX.PCM.DISCH ---
Discharge Instructions Procedure General Surgery Diet Discharge Diet: Light diet - advance as tolerated (if you have questions about your diet instructions, please talk to you doctor.) Activity Discharge Activity: May Not Drive (for 3-5 days or while taking narcotic pain medicine.) May shower in (days): 1 Lifting Restrictions: 10 pounds Dressing / Incision Call your doctor if your incision/area has: Continuous Slow Oozing, Sudden Increased Bleeding, Increased Pain/ Swelling, Increased Redness and Foul Smelling Discharge Call your doctor if you observe: Fever of 101 or Higher Suture Line Care: Avoid Pulling/Pushing and Avoid Pinching/Bending Additional Dressing/Incision Instructions:: You may remove the bulky tape dressing tomorrow. If there is no irritation you may leave the Telfa OpSite plastic dressing in place for an additional 2 days. You may shower over the plastic dressing and pat dry. If there is any leakage underneath the dressing or irritation from the dressing remove it immediately. You may remove it at postoperative day #3 if it has not already been removed. Subsequently then you may shower over the incision itself and pat it dry and then apply a gauze and tape dressing to prevent irritation to the suture line from clothing. Follow Up Care Please Follow Up With: Jose Hernandez MD When: Call [phone] to make an appointment to be seen on Wednesday, May 31, 2023. Discharge Plan Admission Primary Reason for Your Visit: Right chest wall invasive breast cancer Attending Provider: Jose Hernandez Primary Care Provider: Kate Good Discharge Orders/Prescriptions Prescriptions: Continued acetaminophen [Tylenol] 325 mg capsule 325 mg PO Q6H PRN (Reason: pain) omeprazole 40 mg capsule,delayed release(DR/EC) 40 mg PO DAILY Qty: 90 2RF Referrals / Follow Up: Care Physician,No Primary [Non-Staff] - Disposition Disposition (needs filled in before D/C Order can be placed): Home, Self Care
--- NOTE | 2023-05-26 11:31 | PCM.OPRPT ---
Report of Operation Date of Procedure: 05/26/23 Pre-Operative Diagnosis: Invasive lobular carcinoma right chest mastectomy site Post-Operative Diagnosis: Same Surgery/Procedure Performed:: Wide elliptical excision right chest wall invasive lobular carcinoma including partial resection pectoralis major muscle Description of Surgical Findings:: Timeout informed consent was obtained. 68-year-old female was taken to the op room placed upon the table underwent general anesthesia the right arm was carefully wrapped with soft foam placed tolerating most of the table the right chest wall was sterilely prepped and draped a transverse 11 x 3.3 cm ellipse was used to completely excise the area of chest wall recurrence. Electrocautery was used to circumferentially perform the dissection including a central portion of the pectoralis major muscle to assure complete removal. Hemostasis was obtained with interrupted 3-0 Vicryl. The subdermal flaps were approximated to the chest wall and approximated to each other with multiple interrupted 3-0 Vicryl sutures. Subdermal tissues were approximated with the same. Skin edges were then approximated with simple sutures of 3-0 nylon. Telfa OpSite dressing applied followed by bulky dry dressing. It is noted that the negrita-incisional area was anesthetized with 30 cc of 0.5% Marcaine. Sponge and instrument and needle counts were reported to the surgeon to be correct. Blood loss was minimal. She tolerated the procedure well. She was taken to the recovery area in satisfactory condition. Specimen wide excision right chest wall mass. Drains none. Blood loss minimal. Jose Hernandez M.D., F.A.C.S. Surgeon: Jose Hernandez Type of Anesthesia: General and Local Anesthesiologist: Lola Carrion
[2023-05-26] MEDS: Bupivacaine Mpf 0.5% 30 ML VIAL (11:35)
== END 2023-05-26 13:25 | disposition home or self-care (01) ==
LOC: SDC 09:12 → AC 09:15
PROVIDERS: PCP Family Medicine; Referring Provider Family Medicine; Visit Provider Surgery
PROC: (CPT 21554; principal; 2023-05-26 10:45)
DX: C50.911 Malignant neoplasm of unspecified site of right female breast (principal); R22.2 Localized swelling, mass and lump, trunk; Z85.3 Personal history of malignant neoplasm of breast; Z90.10 Acquired absence of unspecified breast and nipple; Z90.5 Acquired absence of kidney
CPT/HCPCS: 21554; 71046; 88305; 93005; J7120; J2405

== ENCOUNTER → 2023-07-23 | Outpatient (CLI) | payer MEDICARE, SELFPAY ==
--- NOTE | 2023-07-23 | LES_PTH ---
PATIENT: RUDDY HILLIARD LOC: [facility]#:[id number] AGE/SX: 68/F ROOM: RE07/23/[address]: Dr. Jose Hernandez MD : 1955 BED: DIS: 07/23/2023 SPEC #: [id number] RECD: 07/23/23 15:07 STATUS: SUKH MARTINEZ #: [id number] SHERIE: 07/23/23 00:[address]: Jose Hernandez DEPT: SURGICAL PATHOLOGY RECD BY: Alan Lemon ENTERED: 07/26/23 10:29 SP TYPE: Lesion OTHR DR: Dr. Kate Good MD Tissues: A - Skin of back, NOS B - Skin of back, NOS Procedures: Surgery Specimen Level IV HEADER OPERATION: Excision of lower and mid back skin lesion PRE-OP DIAGNOSIS: Lower back skin lesion and mid back TISSUE SUBMITTED: A- Skin lesion of lower back, B- Mid back skin lesion MICROSCOPIC DIAGNOSIS A. Skin lesion of lower back, excision biopsy: Basal cell carcinoma, completely excised in the planes of sections examined. B. Mid back skin lesion, excision biopsy: Basal cell carcinoma, completely excised in the planes of sections examined. COMMENT Case has been reviewed in consultation with Dr. Harris who concurs with the above diagnosis. IDC:AM MICROSCOPIC DESCRIPTION Slides are reviewed. GROSS DESCRIPTION A. Received in fixative is one container labeled with the patient's name and designated Skin lesion lower back. The specimen consists of an ellipse of light garber excised skin measuring 3.0 x 1.6 and excised to a depth of 0.7cm. The cutaneous surface displays a flat white scar like lesion measuring 1.5cm in greatest dimension. The specimen is inked, serially sectioned and submitted entirely in two cassettes. B. Received in fixative is one container labeled with the patient's name and designated Mid back skin lesion. The specimen consists of an ellipse of light garber excised skin measuring 1.8 x 1.4 and excised to a depth of 0.7cm. The cutaneous surface does not display any cutaneous lesions. The specimen is inked, serially sectioned and submitted entirely in one cassette. AM/mr 07/26/23 TC:0 CPT: [id number]
== END | disposition home or self-care (01) ==
LOC: LABSPEC 15:18
PROVIDERS: PCP Family Medicine; Referring Provider Surgery; Visit Provider Surgery
DX: L98.9 Disorder of the skin and subcutaneous tissue, unspecified (principal)
CPT/HCPCS: 88305

== ENCOUNTER → 2024-02-23 | Outpatient (CLI) | payer MEDICARE, SELFPAY | END | disposition home or self-care (01) | LOC: OPBI 13:53 | PROVIDERS: PCP Family Medicine; Referring Provider Nurse Practitioner Women's Health; Visit Provider Nurse Practitioner Women's Health | DX: Z12.31 Encounter for screening mammogram for malignant neoplasm of breast (principal) | CPT/HCPCS: 77063; 77067 ==

== ENCOUNTER 2024-03-29 08:03 | Day surgery (SDC) | payer MEDICARE, SELFPAY ==
[2024-03-29] VITALS (8 sets, daily range): BP systolic 96–126; BP diastolic 63–88; PULSE 65–80; RESP 16–18; TEMP 36.2–36.9; O2SAT 91–97; BMI 32.0
--- NOTE | 2024-03-29 08:35 | PCM.PRE.AN2 ---
ASA Classification* ASA Classification ASA Classification: 2 Assessment & Plan Anesthesia* Anesthesia Assessment Anesthesia Assessment: Discussed sedation and/or anesthesia options, risks, benefits, and alternatives with patient/parents/legal guardian/POA. Questions invited. The patient/parents/legal guardian/POA seems to understand and agrees to proceed with anesthesia plan. Reviewed the physical assessment, medical history, allergy history and patient home medications list prior to surgery/procedure/anesthetic and documented any changes. Performed airway and anesthesia risk assessments. Anesthesia Type Anesthesia Type: MAC Anesthesia Focused Assessment* Temperature: 97.2 F Pulse Rate: 80 Blood Pressure: 116/88 Respiratory Rate: 18 Pulse Ox: 97 Airway Assessment Mouth opens: >3 cm Mallampati Score: II Focused Labs Anesthesia Preop lab: CBC WBC 7.3 K/mm3 (4.4-11.0) 12/09/23 12:35 RBC 4.31 M/mm3 (4.2-5.4) 12/09/23 12:35 Hgb 13.4 g/dL (12.0-15.0) 12/09/23 12:35 Hct 40.0 % (37-47) 12/09/23 12:35 Plt Count 265 K/mm3 (150-450) 12/09/23 12:35 CHEMISTRY Potassium 3.6 mmol/L (3.5-5.1) 12/09/23 12:35 Sodium 141 mmol/L (136-145) 12/09/23 12:35 BUN 20 mg/dL (7-18) H 12/09/23 12:35 Creatinine 0.78 mg/dL (0.55-1.02) 12/09/23 12:35 Glucose 106 mg/dL (74-106) 12/09/23 12:35 COAG Pre-Assessment Diagnosis/Proposed Procedure Planned Operative Procedure(s): CSCOPE OA Anesthesia History 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 When Was Last Pacemaker Check QUESTION #4 FULL TEXT: You/Your Family Experience fever (hyperthermia) with Anesthesia Last Oral Intake Last Oral intake: Last Oral Intake NPO since 05:30 03/29/24 08:25 Meds taken in AM with sips of Yes 03/29/24 08:25 water? Meds patient instructed to take am of surgery PONV PONV - credit and collections analyst: PONV - credit and collections analyst Female Yes 03/28/24 10:34 HX of Motion Sickness Yes 03/28/24 10:34 HX of N/V After Surgery No 03/28/24 10:34 Non-Smoker Yes 03/28/24 10:34 Duration of Surgery greater No 03/28/24 10:34 than 60 minutes Number of Risk Factors 3 03/28/24 10:34 PONV Score Moderate Risk 03/28/24 10:34 Height & Weight Height & Weight: Anesthesia: Height & Weight Height 5 ft 6 in 03/29/24 08:25 Weight: 90 kg 03/29/24 08:25 Body Mass Index (BMI) 32.0 03/29/24 08:25 Respiratory Assessment Respiratory Assessment - credit and collections analyst: Respiratory Tract Infection Hx - credit and collections analyst Hx Respiratory Tract Infection No 03/28/24 10:34 STOP Sleep Apnea STOP Sleep Apnea - credit and collections analyst: STOP Sleep Apnea - credit and collections analyst Hx Hypertension No 03/28/24 10:34 Hx Sleep Apnea No 03/28/24 10:34 CPAP BIPAP Do you snore loudly (louder No 03/28/24 10:34 than talking or can be heard Do you often feel tired/ No 03/28/24 10:34 fatigued/ sleepy during daytime? Has anyone observed you stop No 03/28/24 10:34 breathing during sleep? STOP Results Negative 03/28/24 10:34 QUESTION #5 FULL TEXT : Do you snore loudly (louder than talking or can be heard through closed doors)? 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 Specify any problems Hx of Preganancy in last 3 No 03/28/24 10:34 Months Nurse Filling Out Transfusion DSCHRIBER 03/28/24 10:34 & Questions: Date: 03/28/24 03/28/24 10:34 Time: 10:35 03/28/24 10:34 Patient unable to answer at this time (ie. confused, unrespo /Reproduction History /Reproductive History - credit and collections analyst: /Reproductive Hx- credit and collections analyst Hx Now No 03/28/24 10:34 Gestational Age (in weeks): EDC: Hx Hx Para Hx Section SAB No 03/28/24 10:34 PFSH Medical History Gastric reflux Wears glasses Post-menopausal Melanoma Cancer Arthritis Non-smoker History of edema History of bilateral breast cancer Home Medications ?Medication ?Instructions ?Recorded ?Last Taken ?Type acetaminophen 325 mg capsule 325 mg PO Q6H PRN pain 04/30/23 03/28/24 History (Tylenol) anastrozole 1 mg tablet 1 mg PO DAILY 90 days #90 tabs 10/06/23 03/28/24 Rx Hydrocortisone 2.5%/lidocaine 5% #30 ea 12/14/23 Unknown Rx suppository (cmpd) (hydrocortisone 2.5%/lidocaine 5% suppository (compound)) omeprazole 40 mg capsule,delayed 40 mg PO DAILY #90 caps 12/14/23 03/29/24 Rx release Allergy/AdvReac Type Severity Reaction Status Date / Time red dye Allergy Intermediate Hives Verified 03/29/24 08:24 Family History Mother No problems noted. Brother Cancer Son Cancer Father Cancer Surgical History Hx of excision of mass Hx of colonoscopy Hx of kidney donation H/O mastectomy H/O lumpectomy History of delivery Social History household members: spouse current occupational status: retired Smoking Status: Never smoker second hand exposure: No alcohol intake: never substance use type: does not use what type of physical activity do you participate in: other details: cross fit frequency: 3-4 times per week duration: 45-60 minutes/day seatbelt use: always additional social history: Spouse Reddy Review of Systems (Anesthesia) ROS Narrative System reviewed and no additional complaints, except as documented.
--- NOTE | 2024-03-29 09:09 | HP.PCM_ITS ---
HPI - General HPI Narrative RUDDY HILLIARD, is a 69 F who presents for screening colonoscopy patient's last colonoscopy was in [address] Hernandez. Patient's bowel movements daily denies any blood. Patient denies a family history of colon cancer. Patient denies any chronic abdominal pain/nausea/vomiting. Office visit 12/14/23 68-year-old female presents for follow-up status post excision of recurrent right breast cancer in May 2023. Patient did undergo radiation from July to August 2023 and also started on anastrozole in September. Patient had a follow-up PET/CT scan which shows no suspicious abnormalities-previous area in the stomach has also resolved. Patient denies any issues with the right chest incision or any tenderness. Patient states she still has reflux symptoms however it is controlled the omeprazole is requesting a refill. Patient does states she has bowel movements daily her last colonoscopy was in 2012 negative per patient. She is considering scheduling but thinking may be early next year. Patient did have some concerns about hemorrhoids as she states she has been having issues with them however for the last 4 weeks they have been good she does do a healthy diet and states she does not really strain and has bowel movements daily and drinks plenty of water. [facility] Medical History Gastric reflux Wears glasses Post-menopausal Melanoma Cancer Arthritis Non-smoker History of edema History of bilateral breast cancer Home Medications ?Medication ?Instructions ?Recorded ?Last Taken ?Type acetaminophen 325 mg capsule 325 mg PO Q6H PRN pain 04/30/23 03/28/24 History (Tylenol) anastrozole 1 mg tablet 1 mg PO DAILY 90 days #90 tabs 10/06/23 03/28/24 Rx Hydrocortisone 2.5%/lidocaine 5% #30 ea 12/14/23 Unknown Rx suppository (cmpd) (hydrocortisone 2.5%/lidocaine 5% suppository (compound)) omeprazole 40 mg capsule,delayed 40 mg PO DAILY #90 caps 12/14/23 03/29/24 Rx release Allergy/AdvReac Type Severity Reaction Status Date / Time red dye Allergy Intermediate Hives Verified 03/29/24 08:24 Family History Mother No problems noted. Brother Cancer Son Cancer Father Cancer Surgical History Hx of excision of mass Hx of colonoscopy Hx of kidney donation H/O mastectomy H/O lumpectomy History of delivery Social History household members: spouse current occupational status: retired Smoking Status: Never smoker second hand exposure: No alcohol intake: never substance use type: does not use what type of physical activity do you participate in: other details: cross fit frequency: 3-4 times per week duration: 45-60 minutes/day seatbelt use: always additional social history: Spouse Reddy Past Medical/Surgical History Planned Operation Planned Operative Procedure(s): CSCOPE OA Previous Hospitalizations/Surgeries HX Hospitalizations: No Any Problems With Anesthesia: No You/Your Family Experience Fever (Hyperthermia) With Anes: No Cholinesterase deficiency: No Cardiovascular Hx of Irregular Heartbeat and/or Afib: No Hx Heart Attack: No Hx Congestive Heart Failure: No Hx Hypertension: No Hx Pacemaker: No Respiratory Hx Chronic Obstructive Pulmonary Disease (COPD): No Hx Asthma: No Hx Emphysema: No Hx Sleep Apnea: No Hx Respiratory Tract Infection/Cold (presently): No Do You Snore Loudly (louder than talking or can be heard): No Do You Often Feel Tired/ Fatigued/ Sleepy Dring Daytime?: No Has Anyone Observed You Stop Breathing During Sleep?: No Result (for STOP score): Negative Smoking Status: Never smoker Gastrointestinal Hx Ulcer: No Neurological Hx Seizures: No Hx Head/Neck Injury: No Hx Headaches: No Hx Back Injury/Pain: No Does patient have nerve stimulator: No Reproduction : No Miscellaneous Recent Exposure to Contagious Disease: No Allergies red dye Allergy (Intermediate, Verified 03/29/24 08:24) Hives Discharge Is Pt Admitted From a Correction, or a Snf: No After D/C, Where Do you Plan to Go: Return Home Vital Signs Vital Signs Vital Signs: 03/29/24 08:25 03/29/24 08:25 03/29/24 08:35 Temperature 97.2 F L 97.2 F L Temperature Source Temporal Pulse Rate 80 80 Respiratory Rate 18 18 Respiratory Pattern Normal Blood Pressure 116/88 H 116/88 H Blood Pressure Mean 97 Blood Pressure Source Monitor Blood Pressure Position Semi-Fowlers Blood Pressure Location Left Arm Pulse Ox 97 97 Oxygen Delivery Method Room Air Weight Weight: 198 lb 6.656 oz Body Mass Index (BMI) 32.0 Physical Exam Const alert, oriented x3 and no apparent distress HEENT normocephalic and head/scalp atraumatic Resp normal respiratory effort Cardio regular rate GI soft to palpation and non-tender; Negative for non-distended Palpation: Negative for guarding Extremity no clubbing, cyanosis or edema Skin no rashes or lesions noted Neuro CN's II-XII intact bilaterally Psych mental status grossly normal Assessment & Plan Assessment/Plan (1) Encounter for screening for malignant neoplasm of colon: Surgery Risks - Colonoscopy I discussed with the patient the risks of the procedure: Yes Risks Include but are not Limited To: Risks include but are not limited to: Bleeding, perforation requiring further surgery, inability to complete colonoscopy requiring barium enema.
--- NOTE | 2024-03-29 09:15 | COLBX_PTH ---
PATIENT: RUDDY HILLIARD LOC: EN U#:[id number] AGE/SX: 69/F ROOM: RE03/29/[address]: Dr. Bibiana Sarabia MD : 1955 BED: DIS: 03/29/2024 SPEC #: [id number] RECD: 03/29/24 12:12 STATUS: SUKH MARTINEZ #: [id number] SHERIE: 03/29/24 09:[address]: Bibiana Sarabia DEPT: SURGICAL PATHOLOGY RECD BY: Lillie Lemus ENTERED: 03/29/24 13:50 SP TYPE: COLON BX OTHR DR: Dr. Kate Good MD Tissues: A - Cecum, NOS B - Transverse colon C - Sigmoid colon biopsy Procedures: Surgery Specimen Level IV HEADER OPERATION: Colonoscopy and polypectomy PRE-OP DIAGNOSIS: Encounter for screening for malignant neoplasm of colon TISSUE SUBMITTED: A- Cecum polyp x8, B- Transverse polyp x2, C- Sigmoid polyp MICROSCOPIC DIAGNOSIS A. Cecum polyp x8, polypectomy: Fragments of tubular adenoma. Fragments of fecal material. B. Transverse colon polyp x2, polypectomy: Fragments of tubular adenoma. C. Sigmoid polyp, polypectomy: Tubular adenoma. 03/30/2024 MICROSCOPIC DESCRIPTION Slides are reviewed. GROSS DESCRIPTION A. Received in fixative is one container labeled with the patient's name and designated Cecum polyp x8. The specimen consists of multiple irregular fragments of light garber soft tissue that in aggregate measure 2.5 x 2.0 x 0.2 cm. The specimen is totally submitted in one cassette. B. Received in fixative is one container labeled with the patient's name and designated Transverse polyp x2. The specimen consists of multiple irregular fragments of light garber soft tissue that in aggregate measure 1.0 x 0.7 x 0.1 cm. The specimen is totally submitted in one cassette. C. Received in fixative is one container labeled with the patient's name and designated Sigmoid colon polyp. The specimen consists of one irregular fragment of light garber soft tissue that measures 0.3 x 0.3 x 0.1 cm. The specimen is totally submitted in one cassette. 03/29/2024 TC:1 CPT:83452h2
--- NOTE | 2024-03-29 11:00 | OP.COLON_ITS ---
Patient Name: Pearl Rose Procedure Date: 03/29/2024 9:49 AM Date of : 1955 Age: 69 Procedure: Colonoscopy Indications: Screening for colorectal malignant neoplasm Providers: Bibiana Sarabia MD Referring MD: Kate Good Medicines: Monitored Anesthesia Care Patient Profile: This is a 69 year old female. Last Colonoscopy: 2012. Complications: No immediate complications. Procedure: Pre-Anesthesia Assessment: - Prior to the procedure, a History and Physical was performed, and patient medications and allergies were reviewed. The patient's tolerance of previous anesthesia was also reviewed. The risks and benefits of the procedure and the sedation options and risks were discussed with the patient. All questions were answered, and informed consent was obtained. Prior Anticoagulants: The patient has taken no anticoagulant or antiplatelet agents. ASA Grade Assessment: Per anesthesia. After reviewing the risks and benefits, the patient was deemed in satisfactory condition to undergo the procedure. After I obtained informed consent, the scope was passed under direct vision. Throughout the procedure, the patient's blood pressure, pulse, and oxygen saturations were monitored continuously. The Colonoscope was introduced through the anus and advanced to the cecum, identified by appendiceal orifice and ileocecal valve. The colonoscopy was technically difficult and complex due to a tortuous colon. The patient tolerated the procedure well. The quality of the bowel preparation was good. Scope In: 10:00:17 AM Scope Withdrawal Time 0 hours 41 minutes 12 seconds Scope Out: 10:50:40 AM Total Procedure Duration Time 0 hours 50 minutes 23 seconds Findings: Hemorrhoids were found on perianal exam. Non-bleeding external and internal hemorrhoids were found. The hemorrhoids were Grade I (internal hemorrhoids that do not prolapse). A 10 mm polyp was found in the cecum. The polyp was multi-lobulated. The polyp was removed with a piecemeal technique using a hot snare. Resection and retrieval were complete. A less than 5 mm polyp was found in the cecum. The polyp was sessile. The polyp was removed with a cold biopsy forceps. Resection and retrieval were complete. Three semi-pedunculated polyps were found in the sigmoid colon and transverse colon. The polyps were less than 5 mm in size. These polyps were removed with a hot snare. Resection and retrieval were complete. A 25 mm polypoid lesion was found in the descending colon. The lesion was sessile. No bleeding was present. Area was tattooed with an injection of Melonie ink. along fold at 75 cm unable to remove- marked with melonie ink Multiple small-mouthed diverticula were found in the sigmoid colon. The exam was otherwise without abnormality. Impression: - Hemorrhoids found on perianal exam. - Non-bleeding external and internal hemorrhoids. - One 10 mm polyp in the cecum, removed piecemeal using a hot snare. Resected and retrieved. - One less than 5 mm polyp in the cecum, removed with a cold biopsy forceps. Resected and retrieved. - Three less than 5 mm polyps in the sigmoid colon and in the transverse colon, removed with a hot snare. Resected and retrieved. - Likely benign polypoid lesion in the descending colon. Tattooed. - Diverticulosis in the sigmoid colon. - The examination was otherwise normal. Recommendation: - Discharge patient to home. - Resume previous diet. - Continue present medications. - Await pathology results. - Repeat colonoscopy at appointment to be scheduled incomplete polyp resection at 75 cm marked with melonie ink along fold. - Refer to a office technologist at appointment to be scheduled. Procedure Code(s): --- Professional --- 46229, PT, Colonoscopy, flexible; with removal of tumor(s), polyp(s), or other lesion(s) by snare technique 21426, 59, Colonoscopy, flexible; with biopsy, single or multiple 11104, Colonoscopy, flexible; with directed submucosal injection(s), any substance Diagnosis Code(s): --- Professional --- Z12.11, Encounter for screening for malignant neoplasm of colon K64.0, First degree hemorrhoids D12.0, Benign neoplasm of cecum D12.5, Benign neoplasm of sigmoid colon D12.3, Benign neoplasm of transverse colon (hepatic flexure or splenic flexure) D49.0, Neoplasm of unspecified behavior of digestive system K57.30, Diverticulosis of large intestine without perforation or abscess without bleeding CPT copyright 2021 [employer]. All rights reserved. The codes documented in this report are preliminary and upon plasma center technician review may be revised to meet current compliance requirements. MD Bibiana Espitia MD 03/29/2024 10:59:54 AM This report has been signed electronically. Number of Addenda: 0 Note Initiated On: 03/29/2024 9:49 AM
--- NOTE | 2024-03-29 11:00 | OP.CCLET_ITS ---
03/29/2024 Kate Good [place] [id number] [place] [address] Re : Colonoscopy procedure for Pearl Rose Dear Dr. Good This procedure was performed on Friday, March 29, 2024. My impressions and recommendations are as follows: Impressions : - Hemorrhoids found on perianal exam. - Non-bleeding external and internal hemorrhoids. - One 10 mm polyp in the cecum, removed piecemeal using a hot snare. Resected and retrieved. - One less than 5 mm polyp in the cecum, removed with a cold biopsy forceps. Resected and retrieved. - Three less than 5 mm polyps in the sigmoid colon and in the transverse colon, removed with a hot snare. Resected and retrieved. - Likely benign polypoid lesion in the descending colon. Tattooed. - Diverticulosis in the sigmoid colon. - The examination was otherwise normal. Recommendations : - Discharge patient to home. - Resume previous diet. - Continue present medications. - Await pathology results. - Repeat colonoscopy at appointment to be scheduled incomplete polyp resection at 75 cm marked with susan ink along fold. - Refer to a guidance counselor at appointment to be scheduled. My findings are described in the full procedure note, which is enclosed. If I can be of further assistance, please feel free to contact me at Doctor phone number(s): , Work: . Sincerely, MD Bibiana Espitia MD 03/29/2024 10:59:54 AM This report has been signed electronically.
--- NOTE | 2024-03-29 11:05 | PCM.POST.ANE ---
Anesthesia: Postop Eval I Current Vital Signs Temperature: 98.1 F Pulse Rate: 74 Blood Pressure: 100/63 Respiratory Rate: 16 Pulse Ox: 92 Oxygen Delivery Method: Room Air Assessment Airway patent: Yes Spontaneous unlabored respirations: Yes Mental status: Awake nausea: No Vomiting: No Anesthesia Complication: No Fluid Hydration Crystalloid volume administer (ml): 100 Total IV fluid infused: 100 Progress Note Anesthesia document: Postop Eval 1 completed: Yes
--- NOTE | 2024-03-29 11:30 | PCM.POSTANE2 ---
Anesthesia Postop Eval I Sum Postop Eval Completion status Anesthesia document: Postop Eval 1 completed: Yes Anesthesia Postop Eval I Summary Anesthesia Postop Eval I Summary: Anesthesia Postop Eval I: Assessment Summary Airway patent Yes 03/29/24 11:06 [email or web address] Spontaneous unlabored Yes 03/29/24 11:06 [email or web address] respirations Mental status Awake 03/29/24 11:06 [email or web address] nausea No 03/29/24 11:06 [email or web address] Vomiting No 03/29/24 11:06 [email or web address] Anesthesia Postop Eval I: Fluid Summary Crystalloid volume administer 100 03/29/24 11:06 [email or web address] (ml) Colloids volume administered ( ml) Blood Product volume administered (ml) Total IV fluid infused 100 03/29/24 11:06 [email or web address] Anesthesia Postop Eval I: Summary Notes Anesthesia Complication No 03/29/24 11:06 [email or web address] Anesthesia Complication Comment: Post-operative progress note Anesthesia: Postop Eval II Evaluation Mental status: Awake Pain Level: 0 nausea: No Vomiting: No
== END 2024-03-29 12:10 | disposition home or self-care (01) ==
LOC: EN 08:03 → AC 08:06
PROVIDERS: PCP Family Medicine; Referring Provider Family Medicine; Visit Provider Surgery
PROC: 0DJD8ZZ Inspection of Lower Intestinal Tract, Via Natural or Artificial Opening Endoscopic (ICD-10-PCS; CPT 45378; principal; 2024-03-29 09:10)
DX: Z12.11 Encounter for screening for malignant neoplasm of colon (principal); D12.0 Benign neoplasm of cecum; K57.30 Diverticulosis of large intestine without perforation or abscess without bleeding; K64.4 Residual hemorrhoidal skin tags; D12.5 Benign neoplasm of sigmoid colon; K21.9 Gastro-esophageal reflux disease without esophagitis; Z79.899 Other long term (current) drug therapy; D12.3 Benign neoplasm of transverse colon
CPT/HCPCS: 45385; 45380; 45381; 88305; A4648; J2405

== ENCOUNTER 2024-06-21 08:14 | Day surgery (SDC) | payer MEDICARE, SELFPAY ==
[2024-06-21] VITALS (9 sets, daily range): BP systolic 113–149; BP diastolic 56–73; PULSE 67–82; RESP 14–16; TEMP 36.2–36.5; O2SAT 93–95; BMI 32.3
--- NOTE | 2024-06-21 08:41 | PCM.PRE.AN2 ---
ASA Classification* ASA Classification ASA Classification: 2 Assessment & Plan Anesthesia* Anesthesia Assessment Anesthesia Assessment: Discussed sedation and/or anesthesia options, risks, benefits, and alternatives with patient/parents/legal guardian/POA. Questions invited. The patient/parents/legal guardian/POA seems to understand and agrees to proceed with anesthesia plan. Reviewed the physical assessment, medical history, allergy history and patient home medications list prior to surgery/procedure/anesthetic and documented any changes. Performed airway and anesthesia risk assessments. Anesthesia Type Anesthesia Type: MAC Anesthesia Focused Assessment* Temperature: 97.7 F Pulse Rate: 78 Blood Pressure: 149/73 Respiratory Rate: 16 Pulse Ox: 94 Airway Assessment Mouth opens: >3 cm Mallampati Score: II Focused Labs Anesthesia Preop lab: CBC WBC 7.4 K/mm3 (4.4-11.0) 06/08/24 13:06/08/24 RBC 4.58 M/mm3 (4.2-5.4) 06/08/24 13:30 06/08/24 Hgb 14.3 g/dL (12.0-15.0) 06/08/24 13:30 06/08/24 Hct 42.1 % (37-47) 06/08/24 13:30 06/08/24 Plt Count 279 K/mm3 (150-450) 06/08/24 13:30 06/08/24 CHEMISTRY Potassium 4.0 mmol/L (3.5-5.1) 06/08/24 13:30 06/08/24 Sodium 140 mmol/L (136-145) 06/08/24 13:30 06/08/24 BUN 17 mg/dL (7-18) 06/08/24 13:30 06/08/24 Creatinine 0.76 mg/dL (0.55-1.02) 06/08/24 13:30 06/08/24 Glucose 116 mg/dL (74-106) H 06/08/24 13:30 06/08/24 COAG Pre-Assessment Diagnosis/Proposed Procedure Planned Operative Procedure(s): Colonoscopy, Colon polyp resection Anesthesia History Anesthesia History - corrugator helper: Anesthesia History - corrugator helper Hx Hospitalization No 06/16/24 15:28 Any Problems With Anesthesia No 06/16/24 15:28 Cholinesterase deficiency No 06/16/24 15:28 You/Your Family Experience No 06/16/24 15:28 fever (hyperthermia) with Relationship Recent Exposure to Contagious No 06/21/24 08:33 Disease Does patient have nerve No 06/16/24 15:28 stimulator Patient instructed to have device shut off --Does patient have Pacemaker No 06/21/24 08:33 or ICD? When Was Last Pacemaker Check QUESTION #4 FULL TEXT: You/Your Family Experience fever (hyperthermia) with Anesthesia Last Oral Intake Last Oral intake: Last Oral Intake NPO since 06:30 06/21/24 08:33 Meds taken in AM with sips of water? Meds patient instructed to take am of surgery PONV PONV - corrugator helper: PONV - corrugator helper Female Yes 06/16/24 15:28 HX of Motion Sickness Yes 06/16/24 15:28 HX of N/V After Surgery No 06/16/24 15:28 Non-Smoker Yes 06/16/24 15:28 Duration of Surgery greater No 06/16/24 15:28 than 60 minutes Number of Risk Factors 3 06/16/24 15:28 PONV Score Moderate Risk 06/16/24 15:28 Height & Weight Height & Weight: Anesthesia: Height & Weight Height 5 ft 6 in 06/21/24 08:33 Weight: 91 kg 06/21/24 08:33 Body Mass Index (BMI) 32.3 06/21/24 08:33 Respiratory Assessment Respiratory Assessment - corrugator helper: Respiratory Tract Infection Hx - corrugator helper Hx Respiratory Tract Infection No 06/16/24 15:28 STOP Sleep Apnea STOP Sleep Apnea - corrugator helper: STOP Sleep Apnea - corrugator helper Hx Hypertension No 06/16/24 15:28 Hx Sleep Apnea No 06/16/24 15:28 CPAP BIPAP Do you snore loudly (louder Yes 06/16/24 15:28 than talking or can be heard Do you often feel tired/ No 06/16/24 15:28 fatigued/ sleepy during daytime? Has anyone observed you stop No 06/16/24 15:28 breathing during sleep? STOP Results Negative 06/16/24 15:28 QUESTION #5 FULL TEXT : Do you snore loudly (louder than talking or can be heard through closed doors)? 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 Specify any problems Hx of Preganancy in last 3 No 06/16/24 15:28 Months Nurse Filling Out Transfusion MGRIFFITH 06/16/24 15:28 & Questions: Date: 06/16/24 06/16/24 15:28 Time: 15:29 06/16/24 15:28 Patient unable to answer at this time (ie. confused, unrespo /Reproduction History /Reproductive History - corrugator helper: /Reproductive Hx- corrugator helper Hx Now No 06/16/24 15:28 Gestational Age (in weeks): EDC: Hx Hx Para Hx Section SAB No 06/16/24 15:28 PFSH Medical History Use of aromatase inhibitors Gastric reflux Wears glasses Post-menopausal Melanoma Cancer Non-smoker History of edema History of bilateral breast cancer Home Medications ?Medication ?Instructions ?Recorded ?Last Taken ?Type acetaminophen 325 mg capsule 325 mg PO Q6H PRN pain 04/30/23 03/28/24 History (Tylenol) Hydrocortisone 2.5%/lidocaine 5% #30 ea 12/14/23 Unknown Rx suppository (cmpd) (hydrocortisone 2.5%/lidocaine 5% suppository (compound)) anastrozole 1 mg tablet 1 mg PO DAILY 90 days #90 tabs 06/08/24 Unknown Rx omeprazole 40 mg capsule,delayed 40 mg PO DAILY #90 caps 06/08/24 06/21/24 06:30 Rx release Allergy/AdvReac Type Severity Reaction Status Date / Time red dye Allergy Intermediate Hives Verified 06/16/24 15:26 Family History Mother No problems noted. Brother Cancer Son Cancer Father Cancer Surgical History Hx of excision of mass Hx of colonoscopy Hx of kidney donation H/O mastectomy H/O lumpectomy History of delivery Social History household members: spouse current occupational status: retired Smoking Status: Never smoker second hand exposure: No alcohol intake: never substance use type: does not use what type of physical activity do you participate in: other details: cross fit frequency: 3-4 times per week duration: 45-60 minutes/day seatbelt use: always additional social history: Spouse Reddy Review of Systems (Anesthesia) ROS Narrative System reviewed and no additional complaints, except as documented.
--- NOTE | 2024-06-21 09:06 | PCM.HP.STD ---
HPI - General General Date of Admission: 06/21/24 Date of Service: 06/21/24 Chief Complaint: personal history of polyps [facility] Narrative [facility] Details: RUDDY HILLIARD, is a 69 F who presents for a repeat colonscopy. Colonoscopy with Dr Sarabia 03.29.24 Hemorrhoids found on perianal exam. Non-bleeding external and internal hemorrhoids. One 10 mm polyp in the cecum, removed piecemeal using a hot snare. Resected and retrieved. One less than 5 mm polyp in the cecum, removed with a cold biopsy forceps. Resected and retrieved. Three less than 5 mm polyps in the sigmoid colon and in the transverse colon, removed with a hot snare. Resected and retrieved. Likely benign polypoid lesion in the descending colon. Tattooed. Diverticulosis in the sigmoid colon. *BGI established 04.03.24 pt was referred from general surgery for polyp in the ascending colon that was unable to be removed during colonoscopy with Dr Sarabia. Pt reports that she is feeling well overall and denies GI symptoms of concern at this time. Coding [facility] Medical History Use of aromatase inhibitors Gastric reflux Wears glasses Post-menopausal Melanoma Cancer Non-smoker History of edema History of bilateral breast cancer Home Medications ?Medication ?Instructions ?Recorded ?Last Taken ?Type acetaminophen 325 mg capsule 325 mg PO Q6H PRN pain 04/30/23 03/28/24 History (Tylenol) Hydrocortisone 2.5%/lidocaine 5% #30 ea 12/14/23 Unknown Rx suppository (cmpd) (hydrocortisone 2.5%/lidocaine 5% suppository (compound)) anastrozole 1 mg tablet 1 mg PO DAILY 90 days #90 tabs 06/08/24 Unknown Rx omeprazole 40 mg capsule,delayed 40 mg PO DAILY #90 caps 06/08/24 06/21/24 06:30 Rx release Allergy/AdvReac Type Severity Reaction Status Date / Time red dye Allergy Intermediate Hives Verified 06/16/24 15:26 Family History Mother No problems noted. Brother Cancer Son Cancer Father Cancer Surgical History Hx of excision of mass Hx of colonoscopy Hx of kidney donation H/O mastectomy H/O lumpectomy History of delivery Social History household members: spouse current occupational status: retired Smoking Status: Never smoker second hand exposure: No alcohol intake: never substance use type: does not use what type of physical activity do you participate in: other details: cross fit frequency: 3-4 times per week duration: 45-60 minutes/day seatbelt use: always additional social history: Spouse Reddy ROS Constitutional Constitutional: Denies fatigue, fever(s), poor appetite, weight gain or weight loss Gastrointestinal Gastrointestinal: Denies belching, bloating, change in bowel habits, change in stool character, chewing difficulty, coffee ground emesis, constipation, cramping, diarrhea, dyspepsia, dysphagia, early satiety, excessive flatus, fecal incontinence, heartburn, hematemesis, hematochezia, hemorrhoids, loose stools, melena, nausea, odynophagia, rectal bleeding, tenesmus, vomiting or weight changes Vital Signs Vital Signs Vital Signs: 06/21/24 08:33 06/21/24 08:33 06/21/24 08:41 Temperature 97.7 F L 97.7 F L Temperature Source Temporal Pulse Rate 78 78 Respiratory Rate 16 16 Respiratory Pattern Normal Blood Pressure 149/73 H 149/73 H Blood Pressure Mean 98 Blood Pressure Source Monitor Blood Pressure Position Semi-Fowlers Blood Pressure Location Left Arm Pulse Ox 94 94 Oxygen Delivery Method Room Air Weight Weight: 200 lb 9.93 oz Body Mass Index (BMI) 32.3 Physical Exam Const alert, oriented x3, no apparent distress and healthy appearing General Appearance: cooperative GI normal to inspection, nondistended, normoactive bowel sounds, soft to palpation, non-tender and non-distended Percussion: normal to percussion Rectal Exam: deferred Assessment & Plan Assessment/Plan (1) Personal history of colonic polyps: PLAN: s Assessment and Plan Assessment and Plan (1) Personal history of colonic polyps: Status: Acute Plan: She underwent colonoscopy recently and 1 polyp was not able to be removed. Findings: Hemorrhoids were found on perianal exam. Non-bleeding external and internal hemorrhoids were found. The hemorrhoids were Grade I (internal hemorrhoids that do not prolapse). A 10 mm polyp was found in the cecum. The polyp was multi-lobulated. The polyp was removed with a piecemeal technique using a hot snare. Resection and retrieval were complete. A less than 5 mm polyp was found in the cecum. The polyp was sessile. The polyp was removed with a cold biopsy forceps. Resection and retrieval were complete. Three semi-pedunculated polyps were found in the sigmoid colon and transverse colon. The polyps were less than 5 mm in size. These polyps were removed with a hot snare. Resection and retrieval were complete. A 25 mm polypoid lesion was found in the descending colon. The lesion was sessile. No bleeding was present. Area was tattooed with an injection of Melonie ink. along fold at 75 cm unable to remove- marked with melonie ink Multiple small-mouthed diverticula were found in the sigmoid colon. The exam was otherwise without abnormality. Impression: - Hemorrhoids found on perianal exam. - Non-bleeding external and internal hemorrhoids. - One 10 mm polyp in the cecum, removed piecemeal using a hot snare. Resected and retrieved. - One less than 5 mm polyp in the cecum, removed with a cold biopsy forceps. Resected and retrieved. - Three less than 5 mm polyps in the sigmoid colon and in the transverse colon, removed with a hot snare. Resected and retrieved. - Likely benign polypoid lesion in the descending colon. Tattooed. - Diverticulosis in the sigmoid colon. - The examination was otherwise normal. Recommendation: - Repeat colonoscopy at appointment to be scheduled incomplete polyp resection at 75 cm marked with melonie ink along fold. -She was explained alternatives, risk and benefits include not withstanding bleeding, infection, sepsis, perforation, need for charge and . She will have an ASA of 3.
--- NOTE | 2024-06-21 09:15 | COLBX_PTH ---
PATIENT: RUDDY ROSE LOC: EN U#:[id number] AGE/SX: 69/F ROOM: RE06/21/[address]: Dr. Ángel Bates DO : 1955 BED: DIS: 06/21/2024 SPEC #: [id number] RECD: 06/21/24 12:20 STATUS: SUKH MARTINEZ #: [id number] SHERIE: 06/21/24 09:[address]: Ángel Bates DEPT: SURGICAL PATHOLOGY RECD BY: Karol James ENTERED: 06/21/24 12:32 SP TYPE: COLON BX OT DR: Dr. Kate Good MD Tissues: A - COLON BIOPSY B - Cecum, NOS Procedures: Surgery Specimen Level IV HEADER OPERATION: Colonoscopy, colon polyp resection APC cautery PRE-OP DIAGNOSIS: Personal history of colon polyps TISSUE SUBMITTED: A- Hepatic flexure polyp, B- Cecal cap polyp MICROSCOPIC DIAGNOSIS A. Colon, hepatic flexure, polyp, biopsy: * Tubulovillous adenoma, multiple fragments B. Colon, cecal cap, polyp, biopsy: * Serrated polyp with features of sessile serrated adenoma MICROSCOPIC DESCRIPTION Slides are reviewed. GROSS DESCRIPTION Specimen A-received in formalin labeled the patient's name Ruddy Rose and designated hepatic flexure are multiple red-brown, polypoid, and irregular soft tissue fragments admixed with possible vegetable matter that aggregate to 2.5 x 1.8 x 0.7 cm. The two largest polypoid fragments are inked black. Totally submitted as follows:Cassette summary:A1-largest polypoid fragment serially sectionedA2-smaller polypoid fragment bisected and remainder of specimen Specimen B - received in formalin labeled the patient's name Ruddy Rose and designated cecal cap is one red-brown polypoid fragment measuring up to 0.6 cm. Totally submitted in one cassette labeled ShashiJK. 06/21/2024 TC: CPT:32869d4
--- NOTE | 2024-06-21 10:04 | PCM.POST.ANE ---
Anesthesia: Postop Eval I Current Vital Signs Temperature: 97.2 F Pulse Rate: 82 Blood Pressure: 121/56 Respiratory Rate: 16 Pulse Ox: 95 Oxygen Delivery Method: Room Air Assessment Airway patent: Yes Spontaneous unlabored respirations: Yes Mental status: Asleep nausea: No Vomiting: No Anesthesia Complication: No Fluid Hydration Crystalloid volume administer (ml): 85 Total IV fluid infused: 85 Progress Note Anesthesia document: Postop Eval 1 completed: Yes
--- NOTE | 2024-06-21 10:08 | OP.COLON_ITS ---
Patient Name: Pearl Rose Procedure Date: 06/21/2024 9:12 AM Date of : 1955 Age: 69 Procedure: Colonoscopy Indications: High risk colon cancer surveillance: Personal history of colonic polyps Providers: Ángel Bates DO Referring MD: Kate Good Medicines: Monitored Anesthesia Care Patient Profile: This is a 69 year old female. Refer to note in patient chart for documentation of history and physical. Last Colonoscopy: within the past year. Complications: No immediate complications. Procedure: Pre-Anesthesia Assessment: - Prior to the procedure, a History and Physical was performed, and patient medications and allergies were reviewed. The patient is competent. The risks and benefits of the procedure and the sedation options and risks were discussed with the patient. All questions were answered and informed consent was obtained. Patient identification and proposed procedure were verified by the physician in the pre-procedure area. Mental Status Examination: alert and oriented. Airway Examination: normal oropharyngeal airway and neck mobility. Respiratory Examination: clear to auscultation. CV Examination: normal. Prophylactic Antibiotics: The patient does not require prophylactic antibiotics. Prior Anticoagulants: The patient has taken no anticoagulant or antiplatelet agents except for NSAID medication. ASA Grade Assessment: II - A patient with mild systemic disease. After reviewing the risks and benefits, the patient was deemed in satisfactory condition to undergo the procedure. The anesthesia plan was to use monitored anesthesia care (MAC). Immediately prior to administration of medications, the patient was re-assessed for adequacy to receive sedatives. The heart rate, respiratory rate, oxygen saturations, blood pressure, adequacy of pulmonary ventilation, and response to care were monitored throughout the procedure. The physical status of the patient was re-assessed after the procedure. After I obtained informed consent, the scope was passed under direct vision. Throughout the procedure, the patient's blood pressure, pulse, and oxygen saturations were monitored continuously. The Colonoscope was introduced through the anus and advanced to the cecum, identified by appendiceal orifice and ileocecal valve. The colonoscopy was performed without difficulty. The patient tolerated the procedure well. The quality of the bowel preparation was adequate. The ileocecal valve, appendiceal orifice, and rectum were photographed. Scope In: 9:22:55 AM Scope Out: 9:54:33 AM Total Procedure Duration Time 0 hours 31 minutes 38 seconds Findings: The perianal and digital rectal examinations were normal. Multiple small and large-mouthed diverticula were found in the recto-sigmoid colon, sigmoid colon and descending colon. Three sessile polyps were found in the hepatic flexure. The polyps were 2 to 3 mm in size. These polyps were removed with a hot snare. Resection and retrieval were complete. Verification of patient identification for the specimen was done. Estimated blood loss was minimal. A 3 mm polyp was found in the transverse colon. The polyp was sessile. Coagulation for tissue destruction using argon plasma at 0.5 liters/minute and 40 cope was successful. Estimated blood loss was minimal. A 4 mm polyp was found in the cecum. The polyp was sessile. The polyp was removed with a cold biopsy forceps. Resection and retrieval were complete. Verification of patient identification for the specimen was done. Estimated blood loss was minimal. Impression: - Diverticulosis in the recto-sigmoid colon, in the sigmoid colon and in the descending colon. - Three 2 to 3 mm polyps at the hepatic flexure, removed with a hot snare. Resected and retrieved. - One 3 mm polyp in the transverse colon. Treated with argon plasma coagulation (APC). - One 4 mm polyp in the cecum, removed with a cold biopsy forceps. Resected and retrieved. Recommendation: - Repeat colonoscopy in 1 year for surveillance. - Continue present medications. Procedure Code(s): --- Professional --- 27079, Colonoscopy, flexible; with ablation of tumor(s), polyp(s), or other lesion(s) (includes pre- and post-dilation and guide wire passage, when performed) 45234, 59, Colonoscopy, flexible; with removal of tumor(s), polyp(s), or other lesion(s) by snare technique 79273, 59, Colonoscopy, flexible; with biopsy, single or multiple CPT copyright 2021 [employer]. All rights reserved. The codes documented in this report are preliminary and upon death surveys coder review may be revised to meet current compliance requirements. Ángel Bates DO 06/21/2024 10:07:14 AM This report has been signed electronically. Number of Addenda: 0 Note Initiated On: 06/21/2024 9:12 AM
--- NOTE | 2024-06-21 10:08 | OP.CCLET_ITS ---
06/21/2024 Kate Good [place] [id number] [place] [address] Re : Colonoscopy procedure for Pearl Rose Dear Dr. Good This procedure was performed on Friday, June 21, 2024. My impressions and recommendations are as follows: Impressions : - Diverticulosis in the recto-sigmoid colon, in the sigmoid colon and in the descending colon. - Three 2 to 3 mm polyps at the hepatic flexure, removed with a hot snare. Resected and retrieved. - One 3 mm polyp in the transverse colon. Treated with argon plasma coagulation (APC). - One 4 mm polyp in the cecum, removed with a cold biopsy forceps. Resected and retrieved. Recommendations : - Repeat colonoscopy in 1 year for surveillance. - Continue present medications. My findings are described in the full procedure note, which is enclosed. If I can be of further assistance, please feel free to contact me at . Sincerely, Ángel Bates DO 06/21/2024 10:07:14 AM This report has been signed electronically.
--- NOTE | 2024-06-21 11:02 | PCM.POSTANE2 ---
Anesthesia Postop Eval I Sum Postop Eval Completion status Anesthesia document: Postop Eval 1 completed: Yes Anesthesia Postop Eval I Summary Anesthesia Postop Eval I Summary: Anesthesia Postop Eval I: Assessment Summary Airway patent Yes 06/21/24 10:04 [email or web address] Spontaneous unlabored Yes 06/21/24 10:04 [email or web address] respirations Mental status Asleep 06/21/24 10:04 [email or web address] nausea No 06/21/24 10:04 [email or web address] Vomiting No 06/21/24 10:04 [email or web address] Anesthesia Postop Eval I: Fluid Summary Crystalloid volume administer 85 06/21/24 10:04 [email or web address] (ml) Colloids volume administered ( ml) Blood Product volume administered (ml) Total IV fluid infused 85 06/21/24 10:04 [email or web address] Anesthesia Postop Eval I: Summary Notes Anesthesia Complication No 06/21/24 10:04 [email or web address] Anesthesia Complication Comment: Post-operative progress note Anesthesia: Postop Eval II Evaluation Mental status: Awake Pain Level: 0 nausea: No Vomiting: No
== END 2024-06-21 11:04 | disposition home or self-care (01) ==
LOC: EN 08:15 → AC 08:17
PROVIDERS: PCP Family Medicine; Referring Provider Family Medicine; Visit Provider Internal Medicine Gastroenterology
PROC: 0DJD8ZZ Inspection of Lower Intestinal Tract, Via Natural or Artificial Opening Endoscopic (ICD-10-PCS; CPT 45378; principal; 2024-06-21 09:10)
DX: Z12.11 Encounter for screening for malignant neoplasm of colon (principal); D12.0 Benign neoplasm of cecum; D12.3 Benign neoplasm of transverse colon; K63.5 Polyp of colon; K57.30 Diverticulosis of large intestine without perforation or abscess without bleeding; Z79.811 Long term (current) use of aromatase inhibitors; K21.9 Gastro-esophageal reflux disease without esophagitis; Z86.0100 Personal history of colon polyps, unspecified
CPT/HCPCS: 45380; 45385; 45388; 88305; J2405

== ENCOUNTER → 2024-11-28 | Outpatient (CLI) | payer MEDICARE, SELFPAY ==
--- NOTE | 2024-11-28 08:42 | BD_ITS ---
PROCEDURE: DEXA BONE DENSITY STUDY 11/28/2024 REASON FOR EXAM: SCREENING FOR OSTEOPOROSIS F, age 69 y/o . Postmenopausal. TECHNIQUE: DEXA BONE DENSITY STUDY COMPARISON: None FINDINGS: BMD and T-SCORES Lumbar spine: 1.023 g/cm2, T-score 0.0 Levels: L1 through L4 Left femoral neck: 0.681 g/cm2, T-score -1.5 Femoral neck comparison data not recommended for monitoring change. Left total hip: 0.845 g/cm2, T-score -0.8 Right femoral neck: 0.656 g/cm2, T-score -1.7 Femoral neck comparison data not recommended for monitoring change. Right total hip: 0.830 g/cm2, T-score -0.9 The World Health Organization has defined the following categories based on bone density: Normal bone density: T-score equal to or greater than -1.0 Osteopenia: T-score between -1.0 and -2.5 Osteoporosis: T-score equal to or less than -2.5 The patient does meet the pharmacological treatment recommendations for prevention of osteoporosis. BD/Dexa Bone Density Study IMPRESSION: OSTEOPENIA. Recommend follow-up as clinically warranted. Reading Location: [place] [id number]
== END | disposition home or self-care (01) ==
LOC: OPBD 08:39
PROVIDERS: PCP Family Medicine; Referring Provider Nurse Practitioner Family; Visit Provider Nurse Practitioner Family
DX: Z78.0 Asymptomatic menopausal state (principal); Z79.811 Long term (current) use of aromatase inhibitors; M85.80 Other specified disorders of bone density and structure, unspecified site
CPT/HCPCS: 77080

== ENCOUNTER → 2025-02-27 | Outpatient (CLI) | payer MEDICARE, SELFPAY ==
--- NOTE | 2025-02-27 12:00 | BI_ITS ---
EXAM: SCREEN MAMM (CAD) W/CHARLOTTE UNI L DATE: 02/27/2025 CLINICAL HISTORY: F, Age 69 y/o , SCREEN FOR BREAST CANCER Personal history of breast cancer. Prior right mastectomy. Prior left lumpectomy. Mother with breast cancer. TECHNIQUE: Procedure Code: [id number] Modality: MG Procedure: SCREEN MAMM (CAD) W/CHARLOTTE UNI L COMPARISON: Prior exam(s) dated February 23, 2024.. FINDINGS: TISSUE DENSITY: There are scattered areas of fibroglandular density. Bilateral Breast Mammographic Findings: No significant masses, calcifications or other abnormalities are identified. The patient is status post lumpectomy in the deep central lateral aspect of the left breast with resultant postoperative scarring and dystrophic calcification at the operative site. There has been no change. Surgical clips are seen in the left axilla. No suspicious masses, areas of developing architectural distortion, or suspicious calcifications. There has been no significant interval change. BI/SCREEN MAMM (CAD) W/CHARLOTTE UNI L IMPRESSION: Stable bilateral screening mammogram. OVERALL FINAL ASSESSMENT BI-RADS 2: BENIGN RECOMMENDATION: Routine annual follow-up in 1 Year Additional Recommendation none A letter with findings and recommendations will be mailed to the patient. Reading Location: [facility]
== END | disposition home or self-care (01) ==
PROVIDERS: PCP Family Medicine; Referring Provider Nurse Practitioner Women's Health; Visit Provider Nurse Practitioner Women's Health
DX: Z12.31 Encounter for screening mammogram for malignant neoplasm of breast (principal)
CPT/HCPCS: 77063; 77067